=== PATIENT | female | born 1965 | race Caucasian/White ===

== ENCOUNTER → 2017-01-22 | Day surgery (SDC) | payer OTHER ==
[~2017-01-22] MED LIST: ALPR.25 PO; ARIM1TAB OR; BUPIVACAINE/EPINEPHRINE 0.5% 50 ML VIAL ONE; CALCCHW25 PO; CEPH500C3 PO; HEPARIN SODIUM - IV 10,000 UNITS/10 ML VIAL ONE; LACTATED RINGER'S 1000 ML INJ 1,000 ML ONE; LEVO.2 PO; MIDAZOLAM HCL 2 MG/2 ML VIAL ONE; ONDANSETRON HCL 4 MG/2 ML VIAL IV PUSH ONE; PROPOFOL 500 MG/50 ML BTL IV ONE; SODIUM CHLORIDE 0.9% 20 ML VIAL ONE; SYNT200T OR; TAB-TAB PO; ceFAZolin 2 GM PREMIX 50 ML ONE
--- NOTE | 2017-01-22 10:13 | TN ---
cc: CRESCENCIO ABDI M.D. DATE OF SURGERY: 01/22/2017 PREOPERATIVE DIAGNOSIS Recurrent metastatic breast cancer. POSTOPERATIVE DIAGNOSIS Recurrent metastatic breast cancer. PROCEDURE PERFORMED Right subclavian [id number] with intraoperative fluoroscopy. SURGEON Crescencio Abdi MD ANESTHESIA General. COMPLICATIONS None. INDICATION FOR PROCEDURE Ms. Sarabia is a very pleasant 51-year-old female who unfortunately has recurrent metastatic breast cancer. She requires additional chemotherapy. Port placement was requested. Risks and benefits of port placement was discussed with her and her and they were agreeable. DETAILS OF PROCEDURE The patient was identified, brought to the operating room and placed supine on the operating table. After adequate IV sedation was achieved the anterior chest and neck was prepped and draped in standard surgical fashion. 0.25% Marcaine was injected in the skin and subcutaneous tissue around her previous port site in the right subclavian area. The right subclavian vein was then accessed without difficulty using 18 gauge needle. Guidewire was advanced and followed to the level of superior vena cava. Next the previous port incision was opened and subcutaneous pocket was fashioned in the right anterior chest. The introducer was then placed over the guidewire and followed with direct fluoroscopy into the superior vena cava. Guidewire was then removed and the catheter was inserted. Catheter was advanced about 18 cm which placed it in the superior vena cava adjacent to the right atrium. Next the catheter was brought down to the port pocket. The catheter was attached to the port with the locking device. Port was then tested and found to have excellent blood return, easy ability to flush. The port was placed into the pocket and secured with 2-0 Prolene suture. Pocket was then filled with local anesthetic and closed in two layers using a 4-0 Vicryl. Sterile dressings were applied and the patient was awakened, brought to recovery in stable condition. MD CAMI Gomez/LYN /9:49 AM /10:04 AM
== END | disposition home or self-care (01) ==
LOC: ESDC 07:51
PROVIDERS: ATTEND Surgery Trauma Surgery
DX: C79.81 Secondary malignant neoplasm of breast (principal); C80.1 Malignant (primary) neoplasm, unspecified
CPT/HCPCS: 00532; 36561; 76000; C1788; J0690; J1644; J2250; J2405; J3010; J7120

== ENCOUNTER 2017-03-12 10:18 | Day surgery (SDC) | payer OTHER ==
[~2017-03-12 10:18] MED LIST changes: -BUPIVACAINE/EPINEPHRINE 0.5% 50 ML VIAL ONE; -HEPARIN SODIUM - IV 10,000 UNITS/10 ML VIAL ONE; -LACTATED RINGER'S 1000 ML INJ 1,000 ML ONE; -LEVO.2 PO; -MIDAZOLAM HCL 2 MG/2 ML VIAL ONE; -ONDANSETRON HCL 4 MG/2 ML VIAL IV PUSH ONE; -PROPOFOL 500 MG/50 ML BTL IV ONE; -SODIUM CHLORIDE 0.9% 20 ML VIAL ONE; -ceFAZolin 2 GM PREMIX 50 ML ONE
[2017-03-12 10:59] VITALS: BP 104/63; PULSE 120; RESP 16; TEMP 98; O2SAT 97
[2017-03-12 12:00] VITALS: BP 100/57; PULSE 114; RESP 18; TEMP 98.2; O2SAT 98
[2017-03-12 12:15] VITALS: BP 98/58; PULSE 116; RESP 18; O2SAT 98
--- NOTE | 2017-03-12 17:02 | RADRPT ---
EXAM DATE/TIME: 03/12/2017 10:44 [facility] COMPARISON: No previous studies available for comparison. INDICATIONS : Ascites. MEDICAL HISTORY : Hypothyroidism. Left breast caner. Liver cancer. Thyroid cancer. SURGICAL HISTORY : Hysterectomy. Cholecystectomy. Thyroid removal. Left mastecotomy. ENCOUNTER: Initial ACUITY: 1 day PAIN SCORE: 10 LOCATION: Left lower quadrant FLUID: Total volume of 4600 cc of clear, yellow fluid was removed. Fluid was sent to lab for ordered studies. Post procedure scanning reveals no hematoma or other complication. TECHNIQUE: 1. Ultrasound guidance for abdominal paracentesis. 2. Paracentesis. The risks, benefits, and alternatives to ultrasound guided paracentesis were explained to the patient in detail including the risk of bleeding and infection. Written and verbal informed consent was obt ained. With the patient on the ultrasound table, ultrasound imaging was used to select the most appropriate approach for paracentesis. Overlying skin was prepped and draped in the usual sterile fashion and wi th a local anesthetic, a dermatotomy was made with an 11 blade scalpel. A 6 Peruvian Hhj-Y-ngdkzaig ca theter was introduced into the peritoneal cavity and fluid was collected. The patient tolerated the procedure well and left the ultrasound suite in stable condition. CONCLUSION: Uncomplicated ultrasound guided paracentesis. Chapito Jacinto MD on March 12, 2017 at 17:01 Board Certified Radiologist. This report was verified electronically.
== END 2017-03-12 12:30 | disposition home or self-care (01) ==
LOC: HRAD 10:18 → HRIP 10:18 → HRAD 12:30
PROVIDERS: ATTEND Internal Medicine Hematology & Oncology
DX: R18.8 Other ascites (principal); E03.9 Hypothyroidism, unspecified; Z85.3 Personal history of malignant neoplasm of breast; Z85.850 Personal history of malignant neoplasm of thyroid; Z85.05 Personal history of malignant neoplasm of liver; Z90.12 Acquired absence of left breast and nipple
CPT/HCPCS: 49083; C1729

== ENCOUNTER 2017-03-19 10:34 | Day surgery (SDC) | payer OTHER ==
[2017-03-19 11:22] VITALS: BP 94/59; PULSE 109; RESP 16; TEMP 97.7; O2SAT 95
[2017-03-19 12:20] VITALS: BP 86/50; PULSE 100; RESP 18; TEMP 97.8; O2SAT 100
[2017-03-19 12:35] VITALS: BP 92/51; PULSE 102; RESP 18; O2SAT 98
[2017-03-19 12:55] VITALS: BP 90/55; PULSE 102; RESP 18; TEMP 97.4; O2SAT 98
--- NOTE | 2017-03-19 13:28 | RADRPT ---
EXAM DATE/TIME: 03/19/2017 11:02 [facility] COMPARISON: US GUIDED ABD PARACENTESIS, March 12, 2017, 10:44. INDICATIONS : Ascites. MEDICAL HISTORY : Hypothyroidism. Left breast caner. Liver cancer. Thyroid cancer. SURGICAL HISTORY : Hysterectomy. Cholecystectomy. Thyroid removal. Left mastecotomy. ENCOUNTER: Initial ACUITY: 1 day PAIN SCORE: 0/10 LOCATION: Left lower quadrant FLUID: Total volume of 3900 cc of clear, yellow fluid was removed. Fluid was discarded. Paracentesis was therapeutic only. Post procedure scanning reveals no hematoma or other complication. TECHNIQUE: 1. Ultrasound guidance for abdominal paracentesis. 2. Paracentesis. The risks, benefits, and alternatives to ultrasound guided paracentesis were explained to the patient in detail including the risk of bleeding and infection. Written and verbal informed consent was obt ained. With the patient on the ultrasound table, ultrasound imaging was used to select the most appropriate approach for paracentesis. Overlying skin was prepped and draped in the usual sterile fashion and wi th a local anesthetic, a dermatotomy was made with an 11 blade scalpel. A 6 Serbian Ymh-H-xlhbtafx ca theter was introduced into the peritoneal cavity and fluid was collected. The patient tolerated the procedure well and left the ultrasound suite in stable condition. CONCLUSION: Uncomplicated ultrasound guided paracentesis. Chandler Romo MD FACR on March 19, 2017 at 13:22 Board Certified Radiologist. This report was verified electronically.
== END 2017-03-19 12:55 | disposition home or self-care (01) ==
LOC: HRAD 10:34 → HRIP 10:34 → HRAD 12:55
PROVIDERS: ATTEND Internal Medicine Hematology & Oncology
DX: R18.8 Other ascites (principal); E03.9 Hypothyroidism, unspecified; Z85.3 Personal history of malignant neoplasm of breast; Z85.850 Personal history of malignant neoplasm of thyroid; Z85.05 Personal history of malignant neoplasm of liver; Z90.12 Acquired absence of left breast and nipple
CPT/HCPCS: 49083; C1729

== ENCOUNTER 2017-03-21 01:23 | Inpatient (IN) | payer OTHER ==
[~2017-03-21] VITALS: Ht 162.6 cm; Wt 91.0 kg
[2017-03-21] VITALS (8 sets, daily range): BP systolic 96–124; BP diastolic 48–72; PULSE 111–118; RESP 12–20; TEMP 96–98.3; O2SAT 96–100
[2017-03-21] MEDS ORDERED: LEVO.2 PO (01:55)
[2017-03-21] MEDS ORDERED: ONDANSETRON HCL 4 MG/2 ML VIAL ONE (02:07)
[2017-03-21] MEDS ORDERED: SODIUM CHLOR 0.9% 1000 ML INJ 1,000 ML IV SCH (02:37)
[2017-03-21] MEDS ORDERED: SODIUM CHLORIDE 0.9% FLUSH 10 ML FLUSH IV FLUSH PRN ×2 (02:45→05:00)
[2017-03-21] MEDS ORDERED: ONDANSETRON HCL 4 MG/2 ML VIAL IVP ONE (02:45)
[2017-03-21] MEDS ORDERED: MORPHINE SULFATE 4 MG/ML INJ IV PUSH ONE (02:45)
[2017-03-21 03:09] LABS: HEMATOCRIT 32.2 % (35.0-46.0); MEAN CELL VOLUME 93.2 FL (80.0-100.0); MEAN CORPUSCULAR HGB CONC 33.2 % (32.0-36.0); PLATELET COUNT 83 TH/MM3 (150-450); RED BLOOD COUNT 3.46 MIL/MM3 (4.00-5.30); RED CELL DISTRIBUTION WIDTH 24.5 % (11.6-17.2); WHITE BLOOD COUNT 0.6 TH/MM3 (4.0-11.0)
[2017-03-21 03:11] LABS: HEMO FLAGS AUTO DIFF
[2017-03-21 03:15] LABS: ALT (GPT) 59 U/L (10-53); ANION GAP 14 MEQ/L (5-15); AST (GOT) 288 U/L (15-37); BICARBONATE 16.3 MEQ/L (21.0-32.0); BLOOD UREA NITROGEN 42 MG/DL (7-18); CHLORIDE 101 MEQ/L (98-107); GLOMERULAR FILTRATION RATE 58 ML/MIN (>89); POTASSIUM 3.9 MEQ/L (3.5-5.1); SODIUM (NA) 131 MEQ/L (136-145)
[2017-03-21 03:16] LABS: APTT (PATIENT) 49.1 SEC (24.3-30.1); INTERNATIONAL NORMALIZED RATIO 1.6 RATIO; PROTHROMBIN TIME - PATIENT 17.6 SEC (9.8-11.6)
[2017-03-21 03:17] LABS: ALKALINE PHOSPHATASE 449 U/L (45-117); TOTAL BILIRUBIN ADULT 12.1 MG/DL (0.2-1.0)
[2017-03-21 03:31] LABS: BANDS 12 % (0-6); BASOPHILS 8 % (0-2); CORRECTED NUCLEATED RBC 16 /100 WBC (0-0); NEUTROPHIL # MANUAL DIFF 0.2 TH/MM3 (1.8-7.7); POLYS (SEG NEUTROPHILS) 16 % (16-70); PROMYELOCYTES 4 % (0-0); WBC DIFF SAMPLE 25
[2017-03-21 03:33] LABS: PLATELET ESTIMATE SMEAR LOW (NORMAL); PLATELET MORPHOLOGY NORMAL (NORMAL); SCAN/DIFF FINAL DIFF MANUAL
--- NOTE | 2017-03-21 04:10 | PD ---
HPI . Abdominal pain Chief Complaint: Abdominal Pain Time Seen by Provider: 02:37 Travel History International Travel<30 days: No Contact w/Intl Traveler<30days: No Traveled to known affect area: No History of Present Illness HPI Patient presents with lower abdominal pain. She reports the onset at about 10 or 11 PM tonight. She describes it as cramping. It has been unrelieved by oxycodone. She has had 2 episodes of emesis but states that there wasn't very much volume. Pain is rated as 10/10. reports that she has not been eating or drinking for the last several days. She has been having intermittent emesis. This patient has a history of breast cancer with metastases to the liver. Her last chemotherapy was less than a week ago. She is having rapidly progressive worsening of her liver function studies and ascites. PFSH Past Medical History Cancer: Yes (BREAST AND THYROID) Cardiovascular Problems: No Diabetes: No Diminished Hearing: No Endocrine: Yes Genitourinary: No Hepatitis: No Hiatal Hernia: No Immune Disorder: No Neurologic: No Psychiatric: No Respiratory: No Thyroid Disease: Yes (CANCER) Tetanus Vaccination: Unknown Influenza Vaccination: No ?: Not Past Surgical History Abdominal Surgery: No AICD: No Body Medical Devices: BREAST IMPLANTS Cardiac Surgery: No Ear Surgery: No Endocrine Surgery: Yes (THYROIDECTOMY) Eye Surgery: No Genitourinary Surgery: No Gynecologic Surgery: Yes () Joint Replacement: No Oral Surgery: No Pacemaker: No Thoracic Surgery: Yes ( INFUSA PORT AND REMOVAL, BILAT BREAST MASTECTOMY AND RECONSTRUCTION ) Other Surgery: Yes Social History Alcohol Use: No Tobacco Use: No Substance Use: No Allergies-Medications (Allergen,Severity, Reaction): Coded Allergies: Adhesives (Verified Allergy, Severe, WELKONRAD, 03/01/14) NO TAPE OR STERI STRIPS USE PAPER TAPE Reported Meds & Prescriptions Reported Meds & Active Scripts Active Reported Synthroid (Levothyroxine Sodium) 200 Mcg Tab 200 Mcg PO DAILY Review of Systems Except as stated in HPI: all other systems reviewed are Neg General / Constitutional: No: Fever, Chills Gastrointestinal: Positive: Nausea, Vomiting, Abdominal Pain, Loss of Appetite Physical Exam Narrative GENERAL: This is a chronically ill-appearing woman. SKIN: Warm and dry. Jaundiced. HEAD: Atraumatic. Normocephalic. EYES: Pupils equal and round. Sclera are icteric. ENT: No nasal bleeding or discharge. Mucous membranes pink and moist. NECK: Trachea midline. Neck is supple. CARDIOVASCULAR: Regular rhythm, tachycardic rate. RESPIRATORY: No accessory muscle use. Lungs are clear. GASTROINTESTINAL: Ascites. Liver edge is palpable to about the umbilicus. The abdomen is diffusely tender. MUSCULOSKELETAL: No obvious deformities. No edema. NEUROLOGICAL: Drowsy but easily arousable. No obvious cranial nerve deficits. Motor grossly within normal limits. Normal speech. PSYCHIATRIC: Appropriate mood and affect; insight and judgment normal. Data Data Last Documented VS Vital Signs Date Time Temp Pulse Resp B/P Pulse Ox O2 Delivery O2 Flow Rate FiO2 03/21/17 02:01 118 20 99/52 100 Room Air 03/21/17 01:27 97.5 Orders Ondansetron Inj (Zofran Inj) (03/21/17 02:07) Complete Blood Count With Diff (03/21/17 02:37) Comprehensive Metabolic Panel (03/21/17 02:37) Prothrombin Time / Inr (Pt) (03/21/17 02:37) Act Partial Throm Time (Ptt) (03/21/17 02:37) Urinalysis - C+S If Indicated (03/21/17 02:37) Iv Access Insert/Monitor (03/21/17 02:37) Morphine Inj (Morphine Inj) (03/21/17 02:45) Ondansetron Inj (Zofran Inj) (03/21/17 02:45) Sodium Chlor 0.9% 1000 Ml Inj (Ns 1000 M (03/21/17 02:37) Sodium Chloride 0.9% Flush (Ns Flush) (03/21/17 02:45) Ammonia (03/21/17 02:37) Sodium Chlor 0.9% 1000 Ml Inj (Ns 1000 M (03/21/17 04:30) Morphine Inj (Morphine Inj) (03/21/17 04:30) Admit Order (Ed Use Only) (03/21/17 04:45) Labs Laboratory Tests Test 03/21/17 02:42 White Blood Count 0.6 TH/MM3 Red Blood Count 3.46 MIL/MM3 Hemoglobin 10.7 GM/DL Hematocrit 32.2 % Mean Corpuscular Volume 93.2 FL Mean Corpuscular Hemoglobin 31.0 PG Mean Corpuscular Hemoglobin 33.2 % Concent Red Cell Distribution Width 24.5 % Platelet Count 83 TH/MM3 Mean Platelet Volume 9.4 FL Neutrophils (%) (Auto) % Lymphocytes (%) (Auto) % Monocytes (%) (Auto) % Eosinophils (%) (Auto) % Basophils (%) (Auto) % Neutrophils # (Auto) TH/MM3 Lymphocytes # (Auto) TH/MM3 Monocytes # (Auto) TH/MM3 Eosinophils # (Auto) TH/MM3 Basophils # (Auto) TH/MM3 CBC Comment AUTO DIFF Differential Total Cells 25 Counted Neutrophils % (Manual) 16 % Band Neutrophils % 12 % Lymphocytes % 44 % Monocytes % 16 % Basophils % 8 % Neutrophils # (Manual) 0.2 TH/MM3 Promyelocytes 4 % Nucleated Red Blood Cells 16 /100 WBC Differential Comment FINAL DIFF MANUAL Platelet Estimate LOW Platelet Morphology Comment NORMAL Prothrombin Time 17.6 SEC Prothromb Time International 1.6 RATIO Ratio Activated Partial 49.1 SEC Thromboplast Time Sodium Level 131 MEQ/L Potassium Level 3.9 MEQ/L Chloride Level 101 MEQ/L Carbon Dioxide Level 16.3 MEQ/L Anion Gap 14 MEQ/L Blood Urea Nitrogen 42 MG/DL Creatinine 1.00 MG/DL Estimat Glomerular Filtration 58 ML/MIN Rate Random Glucose 113 MG/DL Calcium Level 7.6 MG/DL Total Bilirubin 12.1 MG/DL Aspartate Amino Transf 288 U/L (AST/SGOT) Alanine Aminotransferase 59 U/L (ALT/SGPT) Alkaline Phosphatase 449 U/L Ammonia 25 MCMOL/L Total Protein 6.2 GM/DL Albumin 1.9 GM/DL [facility] Medical Decision Making Medical Screen Exam Complete: Yes Emergency Medical Condition: Yes Medical Record Reviewed: Yes (patient was most recently seen by Dr. Pierce on 03/10.) Differential Diagnosis Differential diagnosis of abdominal pain includes but is not limited to gastritis, pancreatitis, hepatitis, gastroenteritis, gallbladder disease, constipation, urinary retention, UTI, peptic ulcer disease, diverticulitis or appendicitis Narrative Course This is a patient with breast cancer with metastases to the liver who comes in with abdominal pain and worsening ascites. CBC & BMP Diagram 03/21/17 02:42 Her total white blood count and ANC have decreased since 03/18. Total bili 12.1, AST 288, ALT 59, alkaline phosphatase 449, ammonia level 25. This is a cancer patient who comes in with intractable pain associated with worsening ascites and hyperbilirubinemia. She also has neutropenia with an ANC of 200. Vital Signs Date Time Temp Pulse Resp B/P Pulse Ox O2 Delivery O2 Flow Rate FiO2 03/21/17 02:01 118 20 99/52 100 Room Air 03/21/17 01:27 97.5 118 20 96/54 99 Room Air The patient is still tachycardic following a liter fluid. She will be given a second liter. Diagnosis Primary Impression: Abdominal pain Qualified Code: R10.84 - Generalized abdominal pain Additional Impressions: Ascites Qualified Code: R18.0 - Malignant ascites Neutropenia Qualified Code: D70.1 - Chemotherapy-induced neutropenia Dehydration Admitting Information Admitting Physician Requests: Admit Condition: Stable Citlalli Rose MD Mar 21, 2017 04:09
[2017-03-21] MEDS ORDERED: MORPHINE SULFATE 4 MG/ML INJ IV PUSH PRN ×2 (04:30→10:00)
[2017-03-21] MEDS ORDERED: SODIUM CHLOR 0.9% 1000 ML INJ 1,000 ML IV ONE (04:30)
[2017-03-21] MEDS ORDERED: HYDROmorphone HCL PF 1 MG/ML VIAL IV PUSH PRN (05:00)
[2017-03-21] MEDS ORDERED: NALOXONE HCL 0.4 MG/ML AMP IV PRN (05:00)
[2017-03-21] MEDS: SODIUM CHLOR 0.9% 1000 ML INJ 1,000 ML IV SCH ×2 (05:21→14:59)
[2017-03-21] MEDS: LEVOTHYROXINE SODIUM 200 MCG TAB PO SCH (08:37)
[2017-03-21] MEDS: SODIUM CHLORIDE 0.9% FLUSH 10 ML FLUSH IV FLUSH SCH ×2 (09:00→22:27)
[2017-03-21] MEDS ORDERED: ACETAMINOPHEN/HYDROcodone 325 MG/10 MG TAB PO PRN (09:45)
[2017-03-21] MEDS ORDERED: DOCUSATE SODIUM 50 MG/SENNA 8.6 MG TAB PO PRN (09:45)
[2017-03-21] MEDS ORDERED: ACETAMINOPHEN/HYDROcodone 325 MG/7.5 MG TAB PO PRN (09:45)
[2017-03-21] MEDS ORDERED: MAGNESIUM HYDROXIDE SUSP 30 ML CUP PO PRN (09:45)
--- NOTE | 2017-03-21 10:01 | HHI.HP ---
[facility] Rachel Recinos MD Admission Diagnosis dehydration, pancytopenia, ascites, abd pain Diagnoses: Travel History International Travel<30 Days: No Contact w/Intl Traveler <30 Da: No Traveled to Known Affected Are: No History of Present Illness 51-year-old female with past medical history of hypothyroidism, metastatic breast cancer to the liver presented to the emergency room with excruciating lower mid abdominal pain. Pt's gives most of the history and states that since starting the new chemotherapy, pt hasn't been eating. Pt tells me that she has lost 20 lbs in 1 month. Pt has had 2 paracentesis in 2 weeks. Pt vomiting twice yesterday. feels nauseous at this time. currently pt states that she just has soreness in her abdomen, feels very tired, not hungry. denies any diarrhea, admits to lightheadedness but denies any CP/SOB/fevers or chills. Pt states that she had a very small BM yesterday.complains of pruritis Pt's is hopeful that Dr. Pierce and Dr. Recinos will come see the pt in the hospital. Review of Systems Except as stated in HPI: all other systems reviewed are Neg Past Family Social History Past Medical History hypothyroidism metastatic breast cancer to the liver Past Surgical History bilateral mastectomies cholecystectomy thyroidectomy Allergies: Coded Allergies: Adhesives (Verified Allergy, Severe, WELTS, 03/01/14) NO TAPE OR STERI STRIPS USE PAPER TAPE Family History mother from esophageal cancer father: prostate cancer and atria fib Social History denies any smoking hx, alcohol intake or illegal drug use Physical Exam Vital Signs Vital Signs Date Time Temp Pulse Resp B/P Pulse Ox O2 Delivery O2 Flow Rate FiO2 03/21/17 07:14 98.3 113 16 124/48 96 03/21/17 05:08 113 16 98/52 97 Room Air 03/21/17 02:01 118 20 99/52 100 Room Air 03/21/17 01:27 97.5 118 20 96/54 99 Room Air Physical Exam GENERAL: pt looks very tired SKIN: jaundiced. No obvious rashes Cool and dry. HEAD: Atraumatic. Normocephalic. No temporal or scalp tenderness. EYES: Extraocular motions intact. +scleral icterus. No injection or drainage. ENT: Nose without drainage. Airway patent. NECK: Trachea midline. No JVD or lymphadenopathy. Supple, nontender, no meningeal signs. CARDIOVASCULAR: tachycardic without murmurs RESPIRATORY: Clear to auscultation. Breath sounds equal bilaterally. No wheezes , rales, or rhonchi. GASTROINTESTINAL: Abdomen soft, discomfort w deep palpation, ?ascites, distended. difficult to assess for hepato-splenomegaly, or palpable masses. No guarding. MUSCULOSKELETAL: Extremities with +1 edema. N No calf tenderness. Negative Homans sign bilaterally. NEUROLOGICAL: Awake and alert. Cranial nerves II through XII intact. Motor and sensory grossly within normal limits but she is weak. Normal speech. Laboratory Laboratory Tests Test 03/21/17 02:42 White Blood Count 0.6 Red Blood Count 3.46 Hemoglobin 10.7 Hematocrit 32.2 Mean Corpuscular Volume 93.2 Mean Corpuscular Hemoglobin 31.0 Mean Corpuscular Hemoglobin 33.2 Concent Red Cell Distribution Width 24.5 Platelet Count 83 Mean Platelet Volume 9.4 Neutrophils (%) (Auto) Lymphocytes (%) (Auto) Monocytes (%) (Auto) Eosinophils (%) (Auto) Basophils (%) (Auto) Neutrophils # (Auto) Lymphocytes # (Auto) Monocytes # (Auto) Eosinophils # (Auto) Basophils # (Auto) CBC Comment AUTO DIFF Differential Total Cells 25 Counted Neutrophils % (Manual) 16 Band Neutrophils % 12 Lymphocytes % 44 Monocytes % 16 Basophils % 8 Neutrophils # (Manual) 0.2 Promyelocytes 4 Nucleated Red Blood Cells 16 Differential Comment FINAL DIFF MANUAL Platelet Estimate LOW Platelet Morphology Comment NORMAL Prothrombin Time 17.6 Prothromb Time International 1.6 Ratio Activated Partial 49.1 Thromboplast Time Sodium Level 131 Potassium Level 3.9 Chloride Level 101 Carbon Dioxide Level 16.3 Anion Gap 14 Blood Urea Nitrogen 42 Creatinine 1.00 Estimat Glomerular Filtration 58 Rate Random Glucose 113 Calcium Level 7.6 Total Bilirubin 12.1 Aspartate Amino Transf 288 (AST/SGOT) Alanine Aminotransferase 59 (ALT/SGPT) Alkaline Phosphatase 449 Ammonia 25 Total Protein 6.2 Albumin 1.9 Result Diagram: 03/21/1724103/21/17241 Assessment and Plan Assessment and Plan metastatic breast cancer to the liver: pt known to Dr. Pierce. I had a long discussion w Dr. Pierce. She will evaluate the patient, Consult placed. At this time, she is agreeable to a GI consult as pt's LFTs have been worsening. Per Dr. Pierce, pt wants aggressive management and is not yet ready to transition to comfort measures. Dr. Pierce will speak w Dr. Recinos as well and notify her that pt is in the hospital. abdominal pain/ascites/liver failure: most likely from metastatic breast cancer. GI consult in place: T. Bili 12. AST 288 and ALT 59. Monitor. check abdominal u/s for ascites and see if she needs paracentesis. pain management w norco and morphine prn. stool softeners in place hypothyroidism: resumed home med poor appetite/dehydration: very poor appetite since starting the new chemo. Will get optical lens manufacturing tech to speak w pt and make recs.Pt is a vegetarian. I have encouraged pt to try to eat, at least attempt to drink some ensure (which she hasn't). give IVFs for now NS @100ml /hr. tachycardia: most likely from dehydration. monitor. DVT proph: lovenox. will transfer to the oncology floor. Code Status full Discussed Condition With Dr. Pierce, patient and Alta Lal MD Mar 21, 2017 10:01
[2017-03-21] MEDS ORDERED: ONDANSETRON HCL 4 MG/2 ML VIAL IV PUSH PRN (11:00)
--- NOTE | 2017-03-21 14:19 | PD.CONS ---
HPI History of Present Illness This is a 51 year old [lady] with hx breast cancer with liver mets and jaundice who presented with c/o suprapubic pain, nausea, vomiting. She has had 2 paracenteses in the last 2 weeks. She has not been eating much lately. Per EMR she has started new chemo therapy 2 x a week and has been feeling sick since. No blood in vomit, no diarrhea. She sees Dr Sykes. (Shell Delgado) PFSH Past Medical History hypothyroidism metastatic breast cancer to the liver Past Surgical History bilateral mastectomies cholecystectomy thyroidectomy (Shell Delgado) Coded Allergies: Adhesives (Verified Allergy, Severe, WELKONRAD, 03/01/14) NO TAPE OR STERI STRIPS USE PAPER TAPE Family History mother from esophageal cancer father: prostate cancer and atria fib Social History denies any smoking hx, alcohol intake or illegal drug use (Shell Delgado ) Review of Systems Constitutional: COMPLAINS OF: Fatigue, Change in appetite Eyes: DENIES: Blurred vision Ears, nose, mouth, throat: DENIES: Hearing loss Respiratory: DENIES: Wheezing Cardiovascular: DENIES: Chest pain Gastrointestinal: COMPLAINS OF: Abdominal pain, Nausea, Vomiting, Swelling of Abdomen, DENIES: Black stools, Bloody stools, Constipation, Diarrhea, Difficulty Swallowing, Hematemesis Genitourinary: DENIES: Hematuria Musculoskeletal: DENIES: Joint Swelling Integumentary: COMPLAINS OF: Jaundice Hematologic/lymphatic: DENIES: Bruising Neurologic: DENIES: Abnormal gait Psychiatric: DENIES: Confusion (Shell Delgado) GI Exam Vitals I&O Vital Signs Date Time Temp Pulse Resp B/P Pulse Ox O2 Delivery O2 Flow Rate FiO2 03/21/17 11:15 97.5 111 18 124/55 97 03/21/17 07:14 98.3 113 16 124/48 96 03/21/17 05:08 113 16 98/52 97 Room Air 03/21/17 02:01 118 20 99/52 100 Room Air 03/21/17 01:27 97.5 118 20 96/54 99 Room Air Laboratory Test 03/21/17 02:42 White Blood Count 0.6 TH/MM3 Red Blood Count 3.46 MIL/MM3 Hemoglobin 10.7 GM/DL Hematocrit 32.2 % Mean Corpuscular Volume 93.2 FL Mean Corpuscular Hemoglobin 31.0 PG Mean Corpuscular Hemoglobin 33.2 % Concent Red Cell Distribution Width 24.5 % Platelet Count 83 TH/MM3 Mean Platelet Volume 9.4 FL Neutrophils (%) (Auto) % Lymphocytes (%) (Auto) % Monocytes (%) (Auto) % Eosinophils (%) (Auto) % Basophils (%) (Auto) % Neutrophils # (Auto) TH/MM3 Lymphocytes # (Auto) TH/MM3 Monocytes # (Auto) TH/MM3 Eosinophils # (Auto) TH/MM3 Basophils # (Auto) TH/MM3 CBC Comment AUTO DIFF Differential Total Cells 25 Counted Neutrophils % (Manual) 16 % Band Neutrophils % 12 % Lymphocytes % 44 % Monocytes % 16 % Basophils % 8 % Neutrophils # (Manual) 0.2 TH/MM3 Promyelocytes 4 % Nucleated Red Blood Cells 16 /100 WBC Differential Comment FINAL DIFF MANUAL Platelet Estimate LOW Platelet Morphology Comment NORMAL Prothrombin Time 17.6 SEC Prothromb Time International 1.6 RATIO Ratio Activated Partial 49.1 SEC Thromboplast Time Sodium Level 131 MEQ/L Potassium Level 3.9 MEQ/L Chloride Level 101 MEQ/L Carbon Dioxide Level 16.3 MEQ/L Anion Gap 14 MEQ/L Blood Urea Nitrogen 42 MG/DL Creatinine 1.00 MG/DL Estimat Glomerular Filtration 58 ML/MIN Rate Random Glucose 113 MG/DL Calcium Level 7.6 MG/DL Total Bilirubin 12.1 MG/DL Aspartate Amino Transf 288 U/L (AST/SGOT) Alanine Aminotransferase 59 U/L (ALT/SGPT) Alkaline Phosphatase 449 U/L Ammonia 25 MCMOL/L Total Protein 6.2 GM/DL Albumin 1.9 GM/DL Physical Examination HEENT: EOMI; normocephalic; atraumatic; +icterus. CHEST: CTA CARDIAC: tachy ABDOMEN: Soft, distended, nontender; bowel sounds faint EXTREMITIES: No clubbing, cyanosis, 1+ pitting BLE edema. SKIN: Normal; no rash; + jaundice. ASSEMBLER GARMENT FORM: lethargic; oriented times three. (Shell Delgado) Assessment and Plan Plan ASSESSMENT - elevated LFTs, jaundice, ascites - pt has hx BrCa with liver mets. 2 paracenteses in last 2 weeks. US pending. - nausea/vomiting - unclear etiology, ?new chemo. oncology consulted - suprapubic pain - unclear etiology. Will do CT - liver mets - oncology consulted. PLAN - await CT abd/pelvis, US liver - clears for now, when ready to advance low sodium diet - diuretics - consider paracentesis if abd becomes tense - supportive care - further recommendations to follow results above This pt seen by myself and Dr Dover and this note is written on his behalf ( Shell Delgado) Physician Comments Seen and examined, discussed with . Less abdominal pain after Foly's . Will need imaging study (CT) to role biliary tree dominant stricture/ compression . Will follow up with you. (Kaley Dover MD) Shell Delgado Mar 21, 2017 14:19 Kaley Dover MD Mar 21, 2017 15:03
[2017-03-21 14:38] LABS: BACTERIA, URINE MOD /hpf; BLOOD, URINE SMALL (NEG); COMMENT (UR) CULTURE INDICATED; CULTURE IF INDICATED CULTURE INDICATED; GLUCOSE,URINE TRACE mg/dL (NEG); HYALINE CAST, URINE 35 /lpf (RARE); KETONE, URINE NEG (NEG); MUCUS URINE FEW /lpf (OCC); NITRITE,URINE NEG (NEG); PH, URINE 5.5 (5.0-8.5); SQUAMOUS EPITHELIAL CELL URINE 6 /hpf (0-5)
[2017-03-21 14:40] LABS: URINE COLOR DARK-BROWN (YELLW/STRAW)
[2017-03-21] MEDS: SPIRONOLACTONE 50 MG TAB PO SCH (14:58)
[2017-03-21] MEDS: FILGRASTIM 300 MCG/ML VIAL SQ SCH (17:51)
--- NOTE | 2017-03-21 20:25 | MB ---
cc: ALTA LAL MD, RUBY ANNE E. M.D. DATE OF CONSULTATION: 03/21/2017 DATE OF : [address] Alta Lal CHIEF COMPLAINT Dr. Lal requested a consultation for Mrs. Sarabia regarding metastatic breast cancer. HISTORY OF PRESENT ILLNESS Mrs. Sarabia is a well-known 51-year-old woman with a history of metastatic breast cancer in 2011. She has recently progressed on cisplatin, after two cycles she has developed progressive liver metastatic disease. She has developed symptoms of fulminant hepatic failure. She has ascites, she has abdominal pain, enlarged liver, hypobilirubinemia, increased liver function. She was started on palliative therapy and Halaven. She received her second dose this week. On 03/18/2017 her white blood cell count was 5.5, hemoglobin 9.8, platelet count 96,000. On day 8 of Halaven her bilirubin went up from 7.1 to 9.7. Her second dose was administered. Mrs. Sarabia presents with low abdominal pain. She woke up in the middle of the night screaming. She has had increasing symptoms and inability to eat, lack of appetite. She suspected she had a urinary tract infection. Her urinalysis on admission shows a moderate amount of bacteria. She was started on antibiotic therapy. She was found to be neutropenic and neutropenic precaution initiated. Her hemoglobin is stable, her platelet count has decreased slightly. Her ANC is 200 but her temperature is normal, she is tachycardic. She also complains of some sore throat, ear pain. She is uncomfortable from the liver. She has a decrease in performance, her legs are swollen. She still wants to continue aggressive treatment for her metastatic breast cancer. She and her family are eager to determine if there is any response or hope for a response with the Halaven. During the consultation, she was evaluated by Dr. Kaley Dover. Imaging study of the abdomen and pelvis and ultrasound of the liver is being performed to evaluate a stentable source for the hyperbilirubinemia. Her ammonia level is normal. She is reluctant to take pain medicine. She has constipation. The rest of her review of systems is negative. PAST MEDICAL HISTORY 1. Hypothyroidism. 2. Prior history of thyroid cancer. 3. Metastatic breast cancer. 4. Hepatic failure. 5. Hyperbilirubinemia. 6. Ascites. 7. Anemia. PAST SURGICAL HISTORY 1. Plastic surgery. 2. Mastectomy bilateral with reconstruction. 3. Thyroidectomy. 4. Metastasectomy. 5. Bilateral salpingo-oophorectomy. 6. Cholecystectomy. 7. Neck lymph node biopsy. ALLERGIES NO KNOWN DRUG ALLERGIES. FAMILY HISTORY Mother had esophageal cancer, is . Father has prostate cancer and atrial fibrillation. SOCIAL HISTORY She denies any tobacco, alcohol or illicit drug use. PHYSICAL EXAMINATION VITAL SIGNS: Temperature 96.3, heart rate 113, respiratory rate 16, blood pressure 97/54, saturation 100%. GENERAL: Mrs. Sarabia is an overtly jaundiced, ill-appearing, tired-appearing woman. She is sitting in a recliner. HEAD, EYES, EARS, NOSE AND THROAT: Her pupils are round and reactive. Sclerae are icteric. Oropharynx is dry. Tympanic membranes intact without any erythema. Oropharynx without erythema. LUNGS: Clear. CARDIOVASCULAR: Reveals a tachycardia. ABDOMEN: Distended. EXTREMITIES: Lower extremities with bilateral edema. Good pulses. NEUROLOGIC: Nonfocal. LABORATORY DATA Labs significant for hyponatremia. BUN of 42, creatinine 1.0, total bilirubin of 12.1. AST, ALT, alkaline phosphatase elevated. Albumin is decreased. She has pancytopenia. ASSESSMENT AND PLAN Mrs. Sarabia is a 51-year-old woman with metastatic breast cancer. She has progressed on multiple lines of therapy. Recently she has progressed on cisplatin. She has signs of liver failure. She has significant metastatic disease in the liver from her last scan. She has had first cycle of Halaven. Her course is complicated by neutropenia, afebrile, however she has a urinary tract infection which is being treated. I had a lengthy discussion with the patient and her family present at the consultation the difficulty in interpreting her labs are present. It is not clear that she is responding to the chemotherapy. She has just completed her treatment. Cytopenias are related to toxicity from the chemotherapy. It is difficult to interpret the decrease in the AST and ALT is a response, her bilirubin is increasing. This may reduce further pending on the recovery of the liver. GI consultation and input is appreciated. In the meantime, supportive therapy is initiated. The family is worried about her nutrition. I have asked that they defer any parenteral nutrition until her white count recovers. We will have a problem with fluid and ascites and when neutropenic this would be a significant risk for her. I will change her IV fluid to D5 NS. Her pain medication will be scheduled with her option to refuse. Neupogen has been initiated. No transfusion is needed, her platelet count will be monitored. Family has asked for physical therapy, we may consider a physical therapy consultation for range of motion exercises as her performance status is quite poor. She is quite uncomfortable with liver metastatic disease, antiemetic therapy will be placed as well and offered regularly. She complains of itching related to her hypobilirubinemia, she may benefit from some cholestyramine. MD HECTOR Brice/BJF /7:22 PM /7:34 PM
[2017-03-21] MEDS ORDERED: PHYTONADIONE 10 MG/ML VIAL SQ ONE (20:30)
--- NOTE | 2017-03-21 21:48 | RADRPT ---
EXAM DATE/TIME: 03/21/2017 17:52 [facility] COMPARISON: No previous studies available for comparison. [facility], US LIVER, March 11, 2017[facility], CT ABDOMEN AND PELVIS W/O CONTRAST, March 06, 2017. INDICATIONS : Abnormal labs. Abdominal pain. MEDICAL HISTORY : Thyroid cancer. Breast cancer. Liver cancer. Vomiting. Abdominal pain. SURGICAL HISTORY : section. Thyroidectomy. Bilateral mastectomy. Breast reconsruction. ENCOUNTER: Initial ACUITY: 1 day PAIN SCORE: 8/10 LOCATION: Abdomen. MEASUREMENTS: LIVER: 18.5 cm length COMMON DUCT: 5 mm RIGHT KIDNEY: 9.9 x 5.1 x 4.6 cm SPLEEN: 14.5 cm length FINDINGS: LIVER: The liver is diffusely heterogeneous with a lobulated contour. No mass or ductal dilatation. Hepatope saranya flow within the portal vein. Small volume ascites. COMMON DUCT: No intraluminal mass or stone visualized. GALLBLADDER: The gallbladder is nonvisualized. PANCREAS: The visualized portions are within normal limits. RIGHT KIDNEY: No hydronephrosis, stone or mass. SPLEEN: Enlarged spleen. No discrete lesion. CONCLUSION: 1. Cirrhosis. 2. Small volume ascites. Jean-Paul Cross Jr., MD on March 21, 2017 at 21:34 Board Certified Radiologist. This report was verified electronically.
[2017-03-21] MEDS: MORPHINE SULFATE 4 MG/ML INJ IV PUSH SCH (21:50)
[2017-03-21] MEDS: DEXT 5%-NACL 0.9% 1000 ML INJ 1,000 ML IV SCH (22:30)
[2017-03-21] MEDS ORDERED: hydrOXYzine HCL 10 MG TAB PO PRN (22:30)
[2017-03-22] VITALS (16 sets, daily range): BP systolic 82–129; BP diastolic 43–80; PULSE 106–127; RESP 14–46; TEMP 95.6–98.3; O2SAT 95–100
[2017-03-22] MEDS: MORPHINE SULFATE 4 MG/ML INJ IV PUSH SCH ×3 (00:43→05:11)
[2017-03-22] MEDS: LEVOTHYROXINE SODIUM 200 MCG TAB PO SCH (05:11)
[2017-03-22 06:05] LABS: HEMATOCRIT 29.8 % (35.0-46.0); MEAN CELL VOLUME 94.8 FL (80.0-100.0); MEAN CORPUSCULAR HEMOGLOBIN 31.1 PG (27.0-34.0); MEAN CORPUSCULAR HGB CONC 32.8 % (32.0-36.0); PLATELET COUNT 61 TH/MM3 (150-450); RED BLOOD COUNT 3.14 MIL/MM3 (4.00-5.30); RED CELL DISTRIBUTION WIDTH 25.4 % (11.6-17.2); WHITE BLOOD COUNT 0.6 TH/MM3 (4.0-11.0)
[2017-03-22 06:14] LABS: APTT (PATIENT) 53.7 SEC (24.3-30.1); HEMO FLAGS AUTO DIFF; INTERNATIONAL NORMALIZED RATIO 2.1 RATIO
[2017-03-22 06:37] LABS: BICARBONATE 12.9 MEQ/L (21.0-32.0); CALCIUM-PROTEIN CORRECTED 8.1 MG/DL (8.5-10.1); POTASSIUM 4.5 MEQ/L (3.5-5.1)
[2017-03-22] MEDS ORDERED: FUROSEMIDE 20 MG/2 ML VIAL IV PUSH ONE (08:00)
[2017-03-22 08:09] LABS: BANDS 11 % (0-6); BASOPHILS 2 % (0-2); CORRECTED NUCLEATED RBC 4 /100 WBC (0-0); METAMYELOCYTES 1 % (0-1); MYELOCYTES 1 % (0-0); NEUTROPHIL # MANUAL DIFF 0.3 TH/MM3 (1.8-7.7); PLASMA CELLS 1 % (0-0); POLYS (SEG NEUTROPHILS) 40 % (16-70); WBC DIFF SAMPLE 100
[2017-03-22 08:10] LABS: DOHLE BODIES PRESENT (NONE SEEN)
[2017-03-22 08:11] LABS: HOWELL-JOLLY BODIES PRESENT (NONE SEEN)
[2017-03-22 08:15] LABS: ACANTHOCYTES OCC (NORMAL)
[2017-03-22 08:17] LABS: SPHEROCYTES OCC (NORMAL)
[2017-03-22 08:18] LABS: KERATOCYTES OCC (NORMAL); PLATELET ESTIMATE SMEAR LOW (NORMAL); PLATELET MORPHOLOGY NORMAL (NORMAL)
[2017-03-22 08:21] LABS: OVALOCYTES 1+ (NORMAL)
[2017-03-22 08:22] LABS: SCAN/DIFF FINAL DIFF MANUAL; TARGET CELLS 1+ (NORMAL)
[2017-03-22] MEDS: ALBUMIN HUMAN 5% 12.5 GM/250 ML BOTTLE IV SCH ×2 (08:25→20:23)
[2017-03-22] MEDS: SPIRONOLACTONE 50 MG TAB PO SCH (08:44)
--- NOTE | 2017-03-22 08:50 | HHI.PR ---
Subjective Remarks [facility]. She has had some decreased urine output and was on IVF but was third spacing. I came to evaluate the patient, she was found to have a BP of 129/59. She reportedly felt some dizziness. She was started on scheduled morphine last evening, and had been getting it scheduled. Last dose was 3 hrs ago. Patient denies CP or SOB. She was sitting up with legs hanging on side of the bed. She states abdominal pain feels better. She reports feeling tired. [facility] and her albumin dose was started earlier. Blood pressure taken multiple times after and continued to decrease. Objective Vital Signs Date Time Temp Pulse Resp B/P Pulse Ox O2 Delivery O2 Flow Rate FiO2 03/22/17 04:00 96.6 115 20 102/50 95 03/22/17 00:00 96.2 121 22 126/80 98 03/21/17 20:00 115 03/21/17 20:00 96.0 115 20 118/72 98 03/21/17 17:00 96.3 113 12 105/53 96 03/21/17 15:00 96.3 113 16 97/54 100 03/21/17 11:15 97.5 111 18 124/55 97 I/O 03/21/17 03/21/17 03/21/17 03/22/17 03/22/17 03/22/17 07:00 15:00 23:00 07:00 15:00 23:00 Intake Total 480 ml 120 ml Balance 480 ml 120 ml Intake Oral 480 ml 120 ml Bladder Scan Volume Amount 808 ml Result Diagram: 03/22/17 0509 03/22/17 0509 Imaging Last Impressions Liver Ultrasound 03/21/17 0000 Signed Impressions: Service Date/Time: Tuesday, March 21, 2017 17:52 - CONCLUSION: 1. Cirrhosis. 2. Small volume ascites. Jean-Paul Cross Jr., MD Objective Remarks GENERAL: tired and jaundice appearing SKIN: jaundiced. No obvious rashes Cool and dry. HEAD: Atraumatic. Normocephalic. No temporal or scalp tenderness. EYES: Extraocular motions intact. +scleral icterus. No injection or drainage. ENT: Nose without drainage. Airway patent. NECK: Trachea midline. No JVD or lymphadenopathy. Supple, nontender, no meningeal signs. CARDIOVASCULAR: tachycardic without murmurs RESPIRATORY: Clear to auscultation. questionable crackles at lung bases. GASTROINTESTINAL: Abdomen soft, discomfort w deep palpation, + distended. difficult to assess for hepato-splenomegaly, or palpable masses. No guarding. MUSCULOSKELETAL: Extremities with +1 edema. N No calf tenderness. Negative Homans sign bilaterally. NEUROLOGICAL: Awake and alert. Motor and sensory grossly within normal limits but she is weak. Normal speech. A/P Problem List: (1) Neutropenia ICD Code: D70.9 (2) Abdominal pain ICD Code: R10.9 (3) Ascites ICD Code: R18.8 (4) HX OF BREAST MALIGNANCY ICD Code: V10.3 (5) UTI (urinary tract infection) ICD Code: N39.0 (6) Hypotension ICD Code: I95.9 Assessment and Plan 51 yo female with: Hypotension: continues to be labile. She has a UTI, will treat this with Rocephin. Given her immunocompromised state, will do a sepsis workup that includes lactic acid and blood cultures. EKG shows sinus tachy, normal axis, no ST or T wave changes. Will transfer to ICU for closer monitoring, until BP stabilizes, and she is more alert. HOLD lasix. Ammonia pending. CXR pending. Decreased Urine output: decrease urine output with worsening Cr. Nephrology consulted. metastatic breast cancer to the liver: pt known to Dr. Pierce. I had a long discussion w Dr. Pierce. She will evaluate the patient, Consult placed. At this time, she is agreeable to a GI consult as pt's LFTs have been worsening. Per Dr. Pierce, pt wants aggressive management and is not yet ready to transition to comfort measures. Dr. Pierce will speak w Dr. Recinos as well and notify her that pt is in the hospital. abdominal pain/ascites/liver failure: most likely from metastatic breast cancer. GI consult in place: T. Bili 12. AST 288 and ALT 59. Per GI: has chronic liver disease, maybe also have additional acute liver disease, hepatitis panel is pending. consider paracentesis. hypothyroidism: resumed home med poor appetite/dehydration: very poor appetite since starting the new chemo. Will get fig caprifier to speak w pt and make recs. Pt is a vegetarian. I have encouraged pt to try to eat, at least attempt to drink some ensure (which she hasn't). IVF 40 cc/hr, give cautiously given some pulmonary congestion. tachycardia: most likely from dehydration. monitor. DVT proph: lovenox. Discharge Planning D/C pending workup by nephro, gi, and improved clinical status. Problem Qualifiers (1) Neutropenia: Qualified Code: D70.1 - Chemotherapy-induced neutropenia (2) Abdominal pain: Qualified Code: R10.84 - Generalized abdominal pain (3) Ascites: Qualified Code: R18.0 - Malignant ascites Vanessa Valdez MD R3 Mar 22, 2017 08:50
[2017-03-22] MEDS: POLYETHYLENE GLYCOL 17 GM PKG PO SCH (09:00)
[2017-03-22] MEDS ORDERED: cefTRIAXone INJ 1,000 MG in SODIUM CHLORIDE 0.9% INJ 100 ML IV SCH (09:00)
--- NOTE | 2017-03-22 09:32 | RADRPT ---
EXAM DATE/TIME: 03/22/2017 08:42 [facility] COMPARISON: No previous studies available for comparison. INDICATIONS : Cough and congestion. MEDICAL HISTORY : Carcinoma, breast. SURGICAL HISTORY : Infusaport. ENCOUNTER: Initial ACUITY: 1 day PAIN SCORE: 0/10 LOCATION: chest FINDINGS: Single AP view of the chest. Lung volumes are low. Mild right hemidiaphragm elevation. Patchy opacity at the lung bases likely representing atelectasis. Right-sided Hsemhs-c-Hazb with the tip of the cat heter at the cavoatrial junction. Cardiomediastinal silhouette within normal limits. No evidence of p leural effusion or pneumothorax. Surgical clips in the neck bilaterally. CONCLUSION: Mild bilateral lower lung zone opacity likely represent atelectasis. Mild right hemidiaphragm elevati on. Josh Wong MD on March 22, 2017 at 9:29 Board Certified Radiologist. This report was verified electronically.
[2017-03-22] MEDS: SODIUM CHLORIDE 0.9% FLUSH 10 ML FLUSH IV FLUSH SCH ×2 (09:48→20:23)
--- NOTE | 2017-03-22 10:52 | PD.CONS ---
[facility] Service Nephrology Consult Requested By Reason for Consult Acute kidney injury Primary Care Physician Rachel Recinos MD History of Present Illness Ms. Sarabia has metastatic breast cancer. She apparently did not respond to Cisplatin. Has metastatic disease to the liver. She received another chemotherapeutic agent called Halaven. Patient was admitted with pancytopenia, abdominal pain. Thought to have UTI. She developed hypotension and transferred to ICU. She now has oliguric renal failure. She has hyperbilirubinemia and ascites. Review of Systems ROS Limitations: Clinical Condition, Altered Mental Status Past Family Social History Allergies: Coded Allergies: Adhesives (Verified Allergy, Severe, WELTS, 03/01/14) NO TAPE OR STERI STRIPS USE PAPER TAPE Past Medical History hypothyroidism metastatic breast cancer to the liver Past Surgical History bilateral mastectomies cholecystectomy thyroidectomy Reported Medications Active Ordered Medications Current Medications Medications (Trade) Dose Ordered Sig/Gerson Route Start Time Stop Time Status Last Admin (NS Flush) 2 ml UNSCH PRN IV FLUSH 03/21/17 05:00 (NS Flush) 2 ml BID IV FLUSH 03/21/17 09:00 03/22/17 09:48 (Narcan Inj) 0.4 mg UNSCH PRN IV 03/21/17 05:00 (Synthroid) 200 mcg DAILY@06 PO 03/21/17 06:00 03/22/17 05:11 (Miralax) 17 gm DAILY PO 03/22/17 09:00 (Marie-Colace) 1 tab BID PRN PO 03/21/17 09:45 (Milk Of Magnesia Liq) 30 ml DAILY PRN PO 03/21/17 09:45 (Zofran Inj) 4 mg Q6HR PRN IV PUSH 03/21/17 11:00 (Aldactone) 50 mg DAILY PO 03/21/17 14:30 03/21/17 14:58 Filgrastim 300 mcg 300 mcg DAILY@14 SQ 03/21/17 17:15 03/24/17 17:14 03/21/17 17:51 (D5W-NS 1000 ml Inj) 1,000 ml @ 42 mls/hr [id number] IV 03/21/17 20:00 03/21/17 22:30 (Albumin 5% Inj) 12.5 gm Q12H IV 03/22/17 08:00 03/23/17 07:59 03/22/17 08:25 (Atarax) 10 mg Q6H PRN PO 03/21/17 22:30 Morphine Sulfate 1 mg 1 mg Q4H PRN IV PUSH 03/22/17 12:00 (Rocephin Inj/NS Inj) 100 ml @ 200 mls/hr Q24H IV 03/22/17 09:00 03/22/17 09:45 Family History mother from esophageal cancer father: prostate cancer and atria fib Social History no history of ETOH or tobacco Physical Exam Vital Signs Vital Signs Date Time Temp Pulse Resp B/P Pulse Ox O2 Delivery O2 Flow Rate FiO2 03/22/17 08:33 96 21 03/22/17 08:00 95.6 109 24 82/43 95 03/22/17 04:00 96.6 115 20 102/50 95 03/22/17 00:00 96.2 121 22 126/80 98 03/21/17 20:00 115 03/21/17 20:00 96.0 115 20 118/72 98 03/21/17 17:00 96.3 113 12 105/53 96 03/21/17 15:00 96.3 113 16 97/54 100 03/21/17 11:15 97.5 111 18 124/55 97 Physical Exam GENERAL: jaundiced, lethargic. SKIN: Warm and dry. HEAD: Normocephalic. EYES: No scleral icterus. No injection or drainage. NECK: Supple, trachea midline. No JVD or lymphadenopathy. CARDIOVASCULAR: tachycardic. RESPIRATORY: Breath sounds equal bilaterally. No accessory muscle use. GASTROINTESTINAL: Abdomen is distended, diffuse tenderness. MUSCULOSKELETAL: No cyanosis, or edema. BACK: Nontender without obvious deformity. No CVA tenderness. Laboratory Laboratory Tests Test 03/21/17 03/22/17 13:50 05:09 Urine Color DARK-BROWN Urine Turbidity HAZY Urine pH 5.5 Urine Specific [place] 1.021 Urine Protein 30 Urine Glucose (UA) TRACE Urine Ketones NEG Urine Occult Blood SMALL Urine Nitrite NEG Urine Bilirubin LARGE Urine Urobilinogen 2.0 Urine Leukocyte Esterase NEG Urine RBC 5 Urine WBC 2 Urine Squamous Epithelial 6 Cells Urine Amorphous Sediment RARE Urine Bacteria MOD Urine Hyaline Casts 35 Urine Mucus FEW Microscopic Urinalysis Comment CULTURE INDICATED White Blood Count 0.6 Red Blood Count 3.14 Hemoglobin 9.8 Hematocrit 29.8 Mean Corpuscular Volume 94.8 Mean Corpuscular Hemoglobin 31.1 Mean Corpuscular Hemoglobin 32.8 Concent Red Cell Distribution Width 25.4 Platelet Count 61 Mean Platelet Volume 9.5 Neutrophils (%) (Auto) Lymphocytes (%) (Auto) Monocytes (%) (Auto) Eosinophils (%) (Auto) Basophils (%) (Auto) Neutrophils # (Auto) Lymphocytes # (Auto) Monocytes # (Auto) Eosinophils # (Auto) Basophils # (Auto) CBC Comment AUTO DIFF Differential Total Cells 100 Counted Neutrophils % (Manual) 40 Band Neutrophils % 11 Lymphocytes % 43 Monocytes % 1 Basophils % 2 Neutrophils # (Manual) 0.3 Metamyelocytes 1 Myelocytes 1 Nucleated Red Blood Cells 4 Differential Comment FINAL DIFF MANUAL Atypical Lymphocytes Plasma Cells 1 Dohle Bodies PRESENT Platelet Estimate LOW Platelet Morphology Comment NORMAL Spherocytes OCC Target Cells 1+ Ovalocytes 1+ [place] Bodies PRESENT Acanthocytes OCC Keratocytes OCC Prothrombin Time 24.0 Prothromb Time International 2.1 Ratio Activated Partial 53.7 Thromboplast Time Sodium Level 131 Potassium Level 4.5 Chloride Level 102 Carbon Dioxide Level 12.9 Anion Gap 16 Blood Urea Nitrogen 48 Creatinine 2.28 Estimat Glomerular Filtration 22 Rate Random Glucose 95 Calcium Level 7.1 Protein Corrected Calcium 8.1 Total Bilirubin 13.0 Aspartate Amino Transf 301 (AST/SGOT) Alanine Aminotransferase 61 (ALT/SGPT) Alkaline Phosphatase 358 Total Protein 5.3 Albumin 1.6 Date/Time Procedure Status Source Growth 03/22/17 09:00 Aerobic Blood Culture Received Blood Peripheral Pending 03/22/17 09:00 Anaerobic Blood Culture Received Blood Peripheral Pending 03/21/17 13:50 Urine Culture Received Urine Clean Catch Pending Result Diagram: 03/22/17 0509 03/22/17 0509 Assessment and Plan Problem List: (1) Acute kidney failure Plan: likely has developed ATN due to hypotension, sepsis. Obtain urine electrolytes. Continue IVF. Hold diuretics for the time being. Avoid nephrotoxic agents. Poor prognosis. If there is no response with conservative management, dialysis may be necessary, but given her overall poor prognosis, would not recommend dialysis. (2) Sepsis Plan: May have SBP. Needs broad spectrum antibiotics. She has severe metabolic acidosis. (3) Pancytopenia Plan: due to chemotherapy. Hematology following. On Filgrastim. (4) Breast cancer Plan: with liver metastatic disease as well as possible intraperitoneal mets. Poor prognosis. Assessment and Plan Thanks for the consult. I will follow. Addendum: Patient continued to decompensate. Dialysis was ordered because of severe metabolic acidosis. Micah Ledesma MD Mar 22, 2017 10:52
--- NOTE | 2017-03-22 11:05 | HHI.GIFU ---
Subjective Remarks Patient is resting in bed, lethargic, accompanied by family members, She was found lethargic this morning and halicat was initiated due to hypotension and change in condition and was transferred to the unit. (GarlandtanaiMchelemilyedwin BORJA) Objective Vitals I&O Vital Signs Date Time Temp Pulse Resp B/P Pulse Ox O2 Delivery O2 Flow Rate FiO2 03/22/17 08:33 96 21 03/22/17 08:00 95.6 109 24 82/43 95 03/22/17 04:00 96.6 115 20 102/50 95 03/22/17 00:00 96.2 121 22 126/80 98 03/21/17 20:00 115 03/21/17 20:00 96.0 115 20 118/72 98 03/21/17 17:00 96.3 113 12 105/53 96 03/21/17 15:00 96.3 113 16 97/54 100 03/21/17 11:15 97.5 111 18 124/55 97 I/O 03/21/17 03/21/17 03/21/17 03/22/17 03/22/17 03/22/17 07:00 15:00 23:00 07:00 15:00 23:00 Intake Total 480 ml 120 ml Balance 480 ml 120 ml Intake Oral 480 ml 120 ml Bladder Scan Volume Amount 808 ml 180 ml Laboratory Laboratory Tests Test 03/21/17 03/22/17 13:50 05:09 Urine Color DARK-BROWN Urine Turbidity HAZY Urine pH 5.5 Urine Specific [place] 1.021 Urine Protein 30 Urine Glucose (UA) TRACE Urine Ketones NEG Urine Occult Blood SMALL Urine Nitrite NEG Urine Bilirubin LARGE Urine Urobilinogen 2.0 Urine Leukocyte Esterase NEG Urine RBC 5 Urine WBC 2 Urine Squamous Epithelial 6 Cells Urine Amorphous Sediment RARE Urine Bacteria MOD Urine Hyaline Casts 35 Urine Mucus FEW Microscopic Urinalysis Comment CULTURE INDICATED White Blood Count 0.6 Red Blood Count 3.14 Hemoglobin 9.8 Hematocrit 29.8 Mean Corpuscular Volume 94.8 Mean Corpuscular Hemoglobin 31.1 Mean Corpuscular Hemoglobin 32.8 Concent Red Cell Distribution Width 25.4 Platelet Count 61 Mean Platelet Volume 9.5 Neutrophils (%) (Auto) Lymphocytes (%) (Auto) Monocytes (%) (Auto) Eosinophils (%) (Auto) Basophils (%) (Auto) Neutrophils # (Auto) Lymphocytes # (Auto) Monocytes # (Auto) Eosinophils # (Auto) Basophils # (Auto) CBC Comment AUTO DIFF Differential Total Cells 100 Counted Neutrophils % (Manual) 40 Band Neutrophils % 11 Lymphocytes % 43 Monocytes % 1 Basophils % 2 Neutrophils # (Manual) 0.3 Metamyelocytes 1 Myelocytes 1 Nucleated Red Blood Cells 4 Differential Comment FINAL DIFF MANUAL Atypical Lymphocytes Plasma Cells 1 Dohle Bodies PRESENT Platelet Estimate LOW Platelet Morphology Comment NORMAL Spherocytes OCC Target Cells 1+ Ovalocytes 1+ [place] Bodies PRESENT Acanthocytes OCC Keratocytes OCC Prothrombin Time 24.0 Prothromb Time International 2.1 Ratio Activated Partial 53.7 Thromboplast Time Sodium Level 131 Potassium Level 4.5 Chloride Level 102 Carbon Dioxide Level 12.9 Anion Gap 16 Blood Urea Nitrogen 48 Creatinine 2.28 Estimat Glomerular Filtration 22 Rate Random Glucose 95 Calcium Level 7.1 Protein Corrected Calcium 8.1 Total Bilirubin 13.0 Aspartate Amino Transf 301 (AST/SGOT) Alanine Aminotransferase 61 (ALT/SGPT) Alkaline Phosphatase 358 Total Protein 5.3 Albumin 1.6 Date/Time Procedure Status Source Growth 03/22/17 09:00 Aerobic Blood Culture Received Blood Peripheral Pending 03/22/17 09:00 Anaerobic Blood Culture Received Blood Peripheral Pending 03/21/17 13:50 Urine Culture Received Urine Clean Catch Pending Imaging Last Impressions Chest X-Ray 03/22/17 0000 Signed Impressions: Service Date/Time: Wednesday, March 22, 2017 08:42 - CONCLUSION: Mild bilateral lower lung zone opacity likely represent atelectasis. Mild right hemidiaphragm elevation. Josh Wong MD Liver Ultrasound 03/21/17 0000 Signed Impressions: Service Date/Time: Tuesday, March 21, 2017 17:52 - CONCLUSION: 1. Cirrhosis. 2. Small volume ascites. Jean-Paul Cross Jr., MD Physical Exam HEENT: normocephalic; atraumatic; + jaundice. NECK: Neck is supple, no JVD, no lymphadenopathy. CHEST: Chest is clear to auscultation and percussion. CARDIAC: Regular rate and rhythm with no murmur gallop or rubs. ABDOMEN: firm, nondistended,tender; bowel sounds are present in all four quadrants. EXTREMITIES: No clubbing, cyanosis, or edema. SKIN: Normal; no rash; + jaundice. OPENSTACK DEVELOPER: Lethargic (Amawi,Khawla GALLERY INTERN) Assessment and Plan Plan ASSESSMENT - elevated LFTs, jaundice, ascites - Worsening LFTs today. pt has hx BrCa with liver mets. 2 paracenteses in last 2 weeks. US 1. Cirrhosis. 2. Small volume ascites CT not done yet, spoke with nurse, will go for one today - nausea/vomiting - unclear etiology, ?new chemo. oncology consulted - suprapubic pain - unclear etiology. Will do CT - Thrombocytopenia/coagulopathy- oncology on the case - liver mets - oncology consulted. - Acute liver failure- nephrology on the case PLAN - await CT abd/pelvis, - clears for now, when ready to advance low sodium diet - diuretics - consider paracentesis if abd becomes tense - supportive care - further recommendations to follow results above This pt seen by myself and Dr Dover and this note is written on his behalf ( Ellen Limon) Physician Comments Seen and examined, new onset encephalopathy, drug induced vs liver related vs metabolic. Will check viral serology to rule out reactivation of occult infection, check ammonia level and avoid hepatotoxic meds if possible Will follow up with you. (Kaley Dover MD) Ellen Limon Mar 22, 2017 11:05 Kaley Dover MD Mar 22, 2017 11:32
[2017-03-22] MEDS ORDERED: CHLORHEXIDINE GLUCONATE 2 % 1 PACK (2 CLOTHS)(extra cloths) TOPICAL PRN (11:45)
[2017-03-22] MEDS ORDERED: MORPHINE SULFATE 4 MG/ML INJ IV PUSH PRN (12:00)
--- NOTE | 2017-03-22 12:42 | RADRPT ---
EXAM DATE/TIME: 03/22/2017 11:35 [facility] COMPARISON: US ABDOMEN - LIVER, March 21, 2017, 17:52. INDICATIONS : Diffuse abdomen pain today. ORAL CONTRAST: No oral contrast ingested. RADIATION DOSE: 16.32 CTDIvol (mGy) MEDICAL HISTORY : Carcinoma, thyroid. Carcinoma, breast. SURGICAL HISTORY : Mastectomy, bilateral. ENCOUNTER: Initial ACUITY: 1 day PAIN SCALE: 8/10 LOCATION: Bilateral abdomen TECHNIQUE: Volumetric scanning of the abdomen and pelvis was performed. Using automated exposure control and ad justment of the mA and/or kV according to patient size, radiation dose was kept as low as reasonably achievable to obtain optimal diagnostic quality images. FINDINGS: LOWER LUNGS: Bilateral moderate severity lower lobe atelectasis/consolidation. LIVER: Multiple ill-defined rounded hypodensities scattered throughout the liver suspicious for metastatic d isease. The largest measures 2.8 cm in the posterior right lobe. SPLEEN: Normal size without lesion. PANCREAS: Within normal limits. KIDNEYS: Normal in size and shape. There is no mass, stone, or hydronephrosis. ADRENAL GLANDS: Within normal limits. VASCULAR: There is no aortic aneurysm. BOWEL/MESENTERY: Ascites is seen in all 4 quadrants. No evidence of bowel dilatation. No free air. Appendix not identi fied. ABDOMINAL WALL: Superficial soft tissue edema diffusely. RETROPERITONEUM: Multiple proximally 1 cm retroperitoneal lymph nodes, nonspecific. BLADDER: Lozano catheter in place. REPRODUCTIVE: Within normal limits. INGUINAL: There is no lymphadenopathy or hernia. MUSCULOSKELETAL: Fracture of the right side of the L1 vertebral body appears subacute to chronic. There is resulting m ild central canal narrowing. CONCLUSION: 1. Numerous hypodense lesions in the liver suspicious for metastatic disease. 2. Moderate ascites and anasarca. 3. Fracture of the L1 vertebral body likely subacute to chronic. 4. Multiple nonspecific approximately 1 cm retroperitoneal lymph nodes. Josh Wong MD on March 22, 2017 at 12:35 Board Certified Radiologist. This report was verified electronically.
[2017-03-22] MEDS ORDERED: LACTULOSE SYRUP 20 GM/30 ML CUP PO ONE (13:30)
[2017-03-22] MEDS ORDERED: Vancomycin Consult Pharmacy 1 EA OTHER PRN (13:30)
--- NOTE | 2017-03-22 13:37 | HHI.FPPN ---
Addendum to progress note ADDENDUM Reason for addendum: Additonal documentation Additional information Patient reevaluated in [facility]. Family is at bedside. She is sleepy but arousable. Endorses some abdominal pain. Blood pressure in the 90s/40s. Labs reviewed: Lactic acid 8.0, ammonia 43, blood cultures and urine cultures obtained and pending Imaging: CT abdomen suspicious for metastatic disease to the liver. Moderate ascites and anasarca. Fracture of L1. Chest x-ray showed mild bilateral lower lung zone opacity representing atelectasis. Mild right hemidiaphragm elevation. Assessment and plan: - Decrease mental status likely multifactorial in etiology. The patient received IV morphine, her ammonia is elevated, and now meets sepsis criteria. - Vanc (pharmacy consult, renally dose) and Zosyn 6/3- - lactic acid protocol - Lactulose 30 mg by mouth [address] Lemus critical care. Will place formal consult. Vanessa Valdez MD R3 Mar 22, 2017 13:37
--- NOTE | 2017-03-22 13:57 | PD.CONS ---
[facility] Service Critical Care Medicine Consult Requested By Dr. Valdez Reason for Consult Septic shock Neutropenic sepsis Acute kidney failure Severe lactic acidosis Pancytopenia Coagulopathy Liver failure Hyperbilirubinemia Ascites Primary Care Physician Rachel Recinos MD History of Present Illness Patient is a 51-year-old female with past medical history significant for previous thyroid cancer status post thyroidectomy, hypothyroidism, metastatic breast cancer to the liver presented to the emergency room yesterday 03/21 with severe lower and mid abdominal pain. Patient was admitted to the hospitalist service with neutropenic sepsis. She was placed on ceftriaxone. Unclear source possible UTI versus SBP. Pt has had 2 paracentesis in 2 weeks. Apparently patient's ca recently progressed on cisplatin, developed progressive liver metastatic disease with hepatic failure. She was started on palliative therapy with [place] by Dr. Pierce. Patient was moved to the [facility] today for persistent hypotension and lethargy. New labs showed lactic acid 8.0, ammonia 43, blood cultures and urine cultures obtained. CT abdomen suspicious for metastatic disease to the liver, also moderate ascites and anasarca. Rocephin was discontinued and Zosyn was started with single dose of vancomycin. Patient had been progressively oliguric and creatinine increased to 2.3 from 1 on admission. I evaluated the patient in the ICU. She appears acutely ill jaundiced, in severe distress. Bedside ultrasound showed moderate ascites. I discussed with patient and she requests full code including intubation. Her ABG shows severe metabolic acidosis partially compensated ABG 7. with BE -18. I will give total 3 L normal saline fluid boluses, 1 amp of bicarbonate and change fluid to bicarbonate infusion. Will wait 24 hours for response if not patient will need hemodialysis or CVVH. Discussed with Dr. Ledesma Review of Systems ROS Limitations: Clinical Condition Past Family Social History Allergies: Coded Allergies: Adhesives (Verified Allergy, Severe, WELTS, 03/01/14) NO TAPE OR STERI STRIPS USE PAPER TAPE Past Medical History Metastatic breast cancer. Prior history of thyroid cancer. Hypothyroidism. Hepatic failure. Ascites. Anemia. Past Surgical History Bilateral Mastectomy with reconstruction. Thyroidectomy. Bilateral salpingo-oophorectomy. Cholecystectomy. Neck lymph node biopsy. Reported Medications Synthroid Active Ordered Medications Reviewed Family History Mother had esophageal cancer, is , father has prostate cancer Social History No alcohol or tobacco use Physical Exam Vital Signs Vital Signs Date Time Temp Pulse Resp B/P Pulse Ox O2 Delivery O2 Flow Rate FiO2 03/22/17 12:00 97.9 106 18 92/43 96 03/22/17 12:00 106 03/22/17 11:00 112 03/22/17 08:33 96 21 03/22/17 08:00 95.6 109 24 82/43 95 03/22/17 04:00 96.6 115 20 102/50 95 03/22/17 00:00 96.2 121 22 126/80 98 03/21/17 20:00 115 03/21/17 20:00 96.0 115 20 118/72 98 03/21/17 17:00 96.3 113 12 105/53 96 03/21/17 15:00 96.3 113 16 97/54 100 Physical Exam GENERAL: This is a acutely ill-appearing woman. Severely jaundiced in severe distress, lethargic SKIN: Warm and dry. Jaundiced. HEAD: Atraumatic. Normocephalic. EYES: Pupils equal and round. Sclera are icteric. ENT: No nasal bleeding or discharge. Mucous membranes dry NECK: Trachea midline. Neck is supple. CARDIOVASCULAR: Regular rhythm, tachycardic rate. No murmurs RESPIRATORY: Positive accessory muscle use. Lungs are clear, but diminished. GASTROINTESTINAL: Abdomen is distended diffusely tender. Positive hepatomegaly. The abdomen is diffusely tender. MUSCULOSKELETAL: No obvious deformities. No edema. NEUROLOGICAL: Drowsy but arousable. No obvious cranial nerve deficits. Motor grossly within normal limits. Normal speech. Laboratory Laboratory Tests Test 03/22/17 03/22/17 05:09 12:20 White Blood Count 0.6 Red Blood Count 3.14 Hemoglobin 9.8 Hematocrit 29.8 Mean Corpuscular Volume 94.8 Mean Corpuscular Hemoglobin 31.1 Mean Corpuscular Hemoglobin 32.8 Concent Red Cell Distribution Width 25.4 Platelet Count 61 Mean Platelet Volume 9.5 Neutrophils (%) (Auto) Lymphocytes (%) (Auto) Monocytes (%) (Auto) Eosinophils (%) (Auto) Basophils (%) (Auto) Neutrophils # (Auto) Lymphocytes # (Auto) Monocytes # (Auto) Eosinophils # (Auto) Basophils # (Auto) CBC Comment AUTO DIFF Differential Total Cells 100 Counted Neutrophils % (Manual) 40 Band Neutrophils % 11 Lymphocytes % 43 Monocytes % 1 Basophils % 2 Neutrophils # (Manual) 0.3 Metamyelocytes 1 Myelocytes 1 Nucleated Red Blood Cells 4 Differential Comment FINAL DIFF MANUAL Atypical Lymphocytes Plasma Cells 1 Dohle Bodies PRESENT Platelet Estimate LOW Platelet Morphology Comment NORMAL Spherocytes OCC Target Cells 1+ Ovalocytes 1+ [place] Bodies PRESENT Acanthocytes OCC Keratocytes OCC Prothrombin Time 24.0 Prothromb Time International 2.1 Ratio Activated Partial 53.7 Thromboplast Time Sodium Level 131 Potassium Level 4.5 Chloride Level 102 Carbon Dioxide Level 12.9 Anion Gap 16 Blood Urea Nitrogen 48 Creatinine 2.28 Estimat Glomerular Filtration 22 Rate Random Glucose 95 Calcium Level 7.1 Protein Corrected Calcium 8.1 Total Bilirubin 13.0 Aspartate Amino Transf 301 (AST/SGOT) Alanine Aminotransferase 61 (ALT/SGPT) Alkaline Phosphatase 358 Total Protein 5.3 Albumin 1.6 Lactic Acid Level 8.0 Ammonia 43 Date/Time Procedure Status Source Growth 03/22/17 12:31 Aerobic Blood Culture Received Blood Peripheral Pending 03/22/17 12:31 Anaerobic Blood Culture Received Blood Peripheral Pending 03/21/17 13:50 Urine Culture - Preliminary Resulted Urine Clean Catch NO GROWTH IN 24 HOURS. Result Diagram: 03/22/17 0509 03/22/17 0509 Septic Shock Reassessment Heart: Other (tachycardic) Lungs: Diminished Skin: Cold Peripheral Pulses: Weak Right Radial Weak Left Radial Capillary Refill: <2 seconds Assessment and Plan Assessment and Plan NEURO: Metabolic encephalopathy Hyperammonemia -Monitor neuro status closely, avoid sedation -Lactulose 30 mL daily RESP: Respiratory insufficiency Severe metabolic acidosis -Nasal cannula oxygen -DuoNeb every 6 hours scheduled and when necessary -May need endotracheal intubation if worsening acidosis CV: Septic shock Lactic acidosis -Normal saline IV fluids 3L bolus and bicarb gtt at 150 ml per hour -Check serial lactic acid -Levophed as needed to keep map above 65 GI: Hepatic failure Liver metastases -Keep nothing by mouth, IV Protonix -Correct coagulopathy -Not a liver transplant candidate due to metastatic breast cancer : Acute kidney failure Severe metabolic acidosis -Monitor renal function closely. Lozano catheter. Acute renal failure workup per nephrology -Correction of metabolic acidosis with bicarbonate IV push and bicarbonate infusion -May need hemodialysis if not improving in 24 hours ID: Septic shock Neutropenic sepsis Probable UTI Probable SBP -IV vancomycin 1 dose and pharmacy to dose. Zosyn renally adjusted to call for Pseudomonas -Follow-up on blood and urine culture. Send ascites fluid for further studies HEME: Metastatic breast cancer on palliative chemotherapy Chemotherapy-induced pancytopenia -Monitor CBC, CMP, coags -Transfuse 1 unit of platelets and FFP in anticipation of invasive procedures -Prognosis appears very poor ENDO: -Replace electrolytes per protocol PROPH: -Bilateral lower extremity SCDs. IV Protonix 40 mg daily. Chemical DVT prophylaxis contraindicated due to coagulopathy and thrombocytopenia LINES: Utilize peripheral IVs, place central line CC time 110 min excluding procedural time Further respiratory decompensation, pH 7.19 despite bicarbonate infusion and IV push. Patient appears to be very lethargic and tachypneic but starting out. After discussion with patient's and patient she was endotracheally intubated and placed on mechanical ventilation. For hypotension started on Levothroid and rapidly increased to 20 mics per minute. Left subclavian central line also placed. Patient was evaluated and treated multiple times. Additional critical care time 35 minutes excluding procedures Total CCT 145 MIN excluding procedures Code Status Full Discussed Condition With Dr. Ledesma, Dr. Valdez, bedside RN, and patient Manju Lemus MD Mar 22, 2017 13:57
[2017-03-22] MEDS ORDERED: PIPERACIL-TAZO 4.5 GM PREMIX 100 ML IV SCH (14:00)
[2017-03-22 14:42] LABS: BLOOD GAS BASE EXCESS -18.4 mmol/L (-2-2); BLOOD GAS CARBOXYHEMOGLOBIN 1.3 % (0-4); BLOOD GAS HCO3 8 mmol/L (22-26); BLOOD GAS METHEMOGLOBIN 1.1 % (0-2); BLOOD GAS PCO2 20 mmHg (38-42); BLOOD GAS PO2 76 mmHg (61-120)
[2017-03-22 14:43] LABS: BLOOD GAS O2 HGB SATURATION 91 % (90-100); BLOOD GAS OXYGEN CONTENT 11.2 Vol % (12.0-20.0); BLOOD GAS TOTAL HGB 8.7 G/DL (12.0-16.0); CRITICAL VALUE YES; DRAW SITE RT BRACHIAL; FIO2 21 %; NUMBER OF ARTERIAL PUNCTURES 2; STAT YES; TEMP CORR TO 98.6; ULNAR PULSE PRESENT
[2017-03-22] MEDS ORDERED: SODIUM BICARBONATE 8.4% INJ 50 ML ONE (14:45)
--- NOTE | 2017-03-22 14:49 | EKG ---
Date Performed: 03/22/2017 Time Performed: 08:40:41 PTAGE: 51 years EKG: Sinus tachycardia Otherwise within normal limits Since PREVIOUS TRACING 01/25/2014, no significant change. PREVIOUS TRACIN01/25/2014 10.02 DOCTOR: Jose Alejandro Santos Interpretating Date/Time 03/22/2017 14:47:37
[2017-03-22] MEDS: FILGRASTIM 300 MCG/ML VIAL SQ SCH (14:51)
[2017-03-22] MEDS ORDERED: RESP: ALBUTEROL 2.5 MG/IPRATROPIUM 0.5 MG NEB (PRN) NEB (15:00)
[2017-03-22] MEDS ORDERED: SODIUM BICARBONATE 8.4% INJ 50 MEQ/50 ML SYR IV PUSH ONE (15:00)
[2017-03-22] MEDS ORDERED: TERBUTALINE INJ 1 MG/ML AMP SQ PRN ×2 (15:15→18:15)
[2017-03-22] MEDS ORDERED: NOREPINEPHRINE-DEXTROSE DRIP 250 ML IV SCH ×2 (15:15→20:15)
[2017-03-22] MEDS: SODIUM BICARBONATE 8.4% INJ 75 MEQ in SODIUM CHLOR 0.45% 1000 ML INJ 1,000 ML IV SCH ×2 (15:22→20:23)
[2017-03-22] MEDS: RESP: ALBUTEROL 2.5 MG/IPRATROPIUM 0.5 MG NEB (SCH) NEB ×2 (15:27→22:00)
[2017-03-22] MEDS ORDERED: VANCOMYCIN INJ 1,250 MG in SODIUM CHLOR 0.9% 250 ML INJ 250 ML IV ONE (16:00)
[2017-03-22] MEDS: DEXT 5%-NACL 0.9% 1000 ML INJ 1,000 ML IV SCH (16:27)
[2017-03-22 16:30] LABS: BLOOD GAS BASE EXCESS -18.8 mmol/L (-2-2); BLOOD GAS CARBOXYHEMOGLOBIN 1.1 % (0-4); BLOOD GAS HCO3 8 mmol/L (22-26); BLOOD GAS METHEMOGLOBIN 1.1 % (0-2); BLOOD GAS O2 HGB SATURATION 89 % (90-100); BLOOD GAS OXYGEN CONTENT 11.4 Vol % (12.0-20.0); BLOOD GAS PCO2 22 mmHg (38-42); BLOOD GAS PO2 74 mmHg (61-120); BLOOD GAS TOTAL HGB 9.1 G/DL (12.0-16.0); TEMP CORR TO 98.6
[2017-03-22] MEDS ORDERED: ROCURONIUM INJ 50 MG/5 ML VIAL ONE (16:30)
[2017-03-22] MEDS ORDERED: ETOMIDATE 20 MG/10 ML VIAL ONE (16:30)
[2017-03-22] MEDS ORDERED: MIDAZOLAM HCL 5 MG/ML VIAL (1 ML) ONE ×2 (16:30→17:20)
[2017-03-22 16:31] LABS: CRITICAL VALUE YES; DRAW SITE RT BRACHIAL; FIO2 21 %; NUMBER OF ARTERIAL PUNCTURES 1; STAT YES; ULNAR PULSE PRESENT
--- NOTE | 2017-03-22 16:37 | PD.PROCEDR ---
Procedure Note Procedure Paracentesis Note: Informed consent obtained and time out performed Patient was placed in L lateral decubitus position. LLQ site marked with US. Patient prepped and draped under sterile precautions. Site anesthetized with 1% lidocaine. Paracentesis Angiocath was introduced into the peritoneal space and needle was removed and approximately 50 mL brownish yellow slightly cloudy fluid collected for further studies. Angiocath was connected to the Vacutainer and additional approximately 2.3 L of slightly cloudy dark brownish yellow fluid was removed. Blood loss was less than 2 mL. Patient tolerated procedure well Manju Lemus MD Mar 22, 2017 16:37
[2017-03-22] MEDS ORDERED: PROPOFOL 1000 MG/100 ML INJ 100 ML ONE (16:57)
--- NOTE | 2017-03-22 17:07 | PD.PROCEDR ---
Procedure Note Procedure After the risks and benefits were discussed the following procedure was performed: INTUBATION: The patient was put in optimal position for the procedure. Rapid sequence intubation was initiated by me using 20 milligrams of etomidate IV and 5 mg milligrams of Versed IV. DL with Mac 4 blade Grade 1 view, single attempt. The patient was intubated with a 8.0 cuffed endotracheal tube. Tube placement was confirmed by visualization of the tube and balloon passing through the cords , capnometry and subsequent chest x-ray. Breath sounds were equal and well aerated bilaterally postintubation. No breath sounds over stomach. Patient tolerated procedure well. Manju Lemus MD Mar 22, 2017 17:07
--- NOTE | 2017-03-22 17:09 | PD.PROCEDR ---
Central Line Procedure REASON FOR PROCEDURE Central venous access PROCEDURE PERFORMED Central line placement: L subclavian central line CONSENT Informed consent for procedure was obtained from . The risks and benefits of the procedure were discussed to include but limited to bleeding, clot formation, infection, and even . ANESTHESIA Local injection of 1% Lidocaine DESCRIPTION OF THE PROCEDURE The patient was placed in supine, mild Trendelenburg position. The area was exposed and cleansed with ChloraPrep, times two. Large sterile drape was used to cover the patient, with the site exposed, under sterile conditions including cap, face mask, sterile gown, and sterile gloves. On single attempt, the introducer needle was inserted with negative pressure in syringe and venous flash was obtained. The guide wire was then advanced without any restriction and the needle was removed. The dilator was used without any complications. Using Seldinger technique the 20 CM 7F triple lumen catheter was advanced over the guide wire to a depth of 16 centimeters. The guide wire was removed. All ports were aspirated with dark venous blood return and flushed easily with sterile saline. All ports were capped. Antibiotic disc was placed around central line at puncture site. The central line was secured to the skin with two interrupted 2.0 silk sutures. The area was bandaged with sterile see- through central line bandage. COMPLICATIONS: No apparent complications ESTIMATED BLOOD LOSS: Less than 1 cc. Manju Lemus MD Mar 22, 2017 17:09
[2017-03-22] MEDS: VASOPRESSIN 40 U/D5W 100 ML Hypotension, do NOT titrate (enter ordered rate) IV SCH ×2 (17:15)
[2017-03-22 17:34] LABS: BLOOD GAS CARBOXYHEMOGLOBIN 0.7 % (0-4); BLOOD GAS HCO3 9 mmol/L (22-26); BLOOD GAS METHEMOGLOBIN 0.9 % (0-2); BLOOD GAS O2 HGB SATURATION 98 % (90-100); BLOOD GAS OXYGEN CONTENT 13.5 Vol % (12.0-20.0); BLOOD GAS PCO2 28 mmHg (38-42); BLOOD GAS PO2 373 mmHg (61-120); BLOOD GAS TOTAL HGB 9.1 G/DL (12.0-16.0); CRITICAL VALUE YES; OXYGEN DEVICE VENTILATOR; TEMP CORR TO 98.6
[2017-03-22 17:35] LABS: DRAW SITE RT BRACHIAL; FIO2 100 %; NUMBER OF ARTERIAL PUNCTURES 1; STAT NO; ULNAR PULSE PRESENT; VENT SETTINGS PRVC/AC
--- NOTE | 2017-03-22 17:49 | PD.PROCEDR ---
Central Line Procedure REASON FOR PROCEDURE Central venous access PROCEDURE PERFORMED Central line placement: RIJ Vascath US guided CONSENT Informed consent for procedure was obtained and time out performed. The risks and benefits of the procedure were discussed to include but limited to bleeding , clot formation, infection, and even . ANESTHESIA Local injection of 1% Lidocaine DESCRIPTION OF THE PROCEDURE The patient was placed in supine, mild Trendelenburg position. The area was exposed and cleansed with ChloraPrep, times two. Large sterile drape was used to cover the patient, with the site exposed, under sterile conditions including cap, face mask, sterile gown, and sterile gloves. On single attempt, the introducer needle was inserted with negative pressure in syringe and venous flash was obtained. The guide wire was then advanced without any restriction and the needle was removed. The dilator was used without any complications. Using Seldinger technique the 20 CM 14F two lumen vascath was advanced over the guide wire to a depth of 17 centimeters. The guide wire was removed. All ports were aspirated with dark venous blood return and flushed easily with sterile saline. All ports were capped. Antibiotic disc was placed around central line at puncture site. The central line was secured to the skin with two interrupted 2.0 silk sutures. The area was bandaged with sterile see- through central line bandage. RADIOLOGICAL DATA Ultrasound guidance was used to locate RIJ. Doppler/color flow was used to confirm venous flow. COMPLICATIONS: No apparent complications ESTIMATED BLOOD LOSS: Less than 1 cc. Manju Lemus MD Mar 22, 2017 17:49
[2017-03-22] MEDS ORDERED: VANCOMYCIN INJ 1,000 MG in SODIUM CHLOR 0.9% 250 ML INJ 250 ML IV SCH (18:00)
--- NOTE | 2017-03-22 18:01 | RADRPT ---
EXAM DATE/TIME: 03/22/2017 17:01 [facility] COMPARISON: CHEST SINGLE AP, March 22, 2017, 8:42. INDICATIONS : Central line and vascath placement. MEDICAL HISTORY : Carcinoma, breast. SURGICAL HISTORY : Infusaport. ENCOUNTER: Initial ACUITY: 1 day PAIN SCORE: Non-responsive. LOCATION: Bilateral chest FINDINGS: The endotracheal tube tip is 1 cm above the darlyn. Left subclavian catheter tip projects over the m id superior vena cava. Right [id number] catheter tip projects over the mid superior vena cava. N o evidence of pneumothorax. Gastric tube traverses the [id number]. Patchy infiltrates are presen t in the left mid and lower lung and causes loss of portions of the left hemidiaphragm. No consolida tive infiltrates in right lung. The heart is normal size. Multiple hemoclips in the low neck. CONCLUSION: 1. ET tube tip is within 1 cm of the darlyn and needs to be withdrawn 1.0-1.5 cm. 2. Left subclavian catheter in good position. No evidence of pneumothorax. 3. Patchy non-consolidative infiltrates in the left lower lung. Jean-Paul Yanez MD on March 22, 2017 at 17:57 Board Certified Radiologist. This report was verified electronically.
[2017-03-22] MEDS ORDERED: ALBUMIN HUMAN 25% 25 GM/100 ML BAGP IV ONE (18:15)
--- NOTE | 2017-03-22 18:15 | RADRPT ---
EXAM DATE/TIME: 03/22/2017 17:43 [facility] COMPARISON: CHEST SINGLE AP, March 22, 2017, 17:01. INDICATIONS : Evaluate for vas-cath placement. MEDICAL HISTORY : Carcinoma, breast. SURGICAL HISTORY : Infusaport. ENCOUNTER: Subsequent ACUITY: 1 day PAIN SCORE: Non-responsive. LOCATION: chest FINDINGS: The endotracheal tube is at the level of the darlyn and needs be withdrawn 1.5 cm. A subclavian cath eter tip projects over the proximal superior vena cava. Right Ddfdlr-[id number]-[id number] catheter projects over t he mid superior vena cava. Interval placement of right internal jugular catheter with the tip projec mary over the right atrium. No evidence of pneumothorax on either side. The heart is normal in size. Patchy infiltrates left lower lung slightly improved from prior. Right lung is clear. The heart i s normal in size. Gastric tube tip and side-port project within the stomach. CONCLUSION: 1. Right internal jugular catheter in good position. No evidence pneumothorax. 2. ET tube tip is at the darlyn and needs to be withdrawn 1.5 cm. 3. Stable patchy infiltrates in the left lower lung. Jean-Paul Yanez MD on March 22, 2017 at 18:11 Board Certified Radiologist. This report was verified electronically.
[2017-03-22] MEDS ORDERED: HEPARIN SODIUM - IV 10,000 UNITS/10 ML VIAL OTHER PRN (18:30)
[2017-03-22] MEDS ORDERED: GELATIN 12 MM/7 MM FOAM TOPICAL PRN (18:30)
[2017-03-22] MEDS ORDERED: GENTAMICIN SULFATE (DIALYSIS USE ONLY) 20 MG/2 ML VIAL OTHER PRN (18:30)
[2017-03-22] MEDS ORDERED: MANNITOL 12.5 GM/50 ML VIAL IV PRN (18:30)
[2017-03-22] MEDS ORDERED: cloNIDine HCL 0.1 MG TAB PO PRN (18:30)
[2017-03-22] MEDS ORDERED: HEPARIN SODIUM - IV 10,000 UNITS/10 ML VIAL IV FLUSH PRN (18:30)
[2017-03-22] MEDS ORDERED: diphenhydrAMINE HCL 25 MG CAP PO PRN (18:30)
[2017-03-22] MEDS ORDERED: SODIUM CHLORIDE 0.9% FLUSH 10 ML FLUSH IV FLUSH PRN (18:30)
[2017-03-22] MEDS ORDERED: ONDANSETRON HCL 4 MG/2 ML VIAL IV PRN (18:30)
[2017-03-22] MEDS ORDERED: ACETAMINOPHEN 325 MG TAB PO PRN (18:30)
[2017-03-22] MEDS ORDERED: NITROGLYCERIN 0.4 MG SL 25 TABS/BTL SL PRN (18:30)
[2017-03-22] MEDS ORDERED: ALBUMIN HUMAN 25% 25 GM/100 ML BAGP IV PRN (18:30)
[2017-03-22] MEDS ORDERED: SODIUM CHLOR 0.9% 1000 ML IV PRN ×2 (18:30)
[2017-03-22] MEDS ORDERED: NS 250 ML IV PRN (18:30)
[2017-03-22] MEDS ORDERED: PHENYLEPHRINE INJ 40 MG in DEXTROSE 5% IN WATE 500 ML INJ 496 ML IV SCH ×2 (19:15)
[2017-03-22 19:26] LABS: PERITONEAL WBC 1027 /MM3 (0-10)
[2017-03-22 19:27] LABS: PERITONEAL HISTIOCYTES 7 %; PERITONEAL LYMPHS 39 %; PERITONEAL MESOTHELIAL 2 %; PERITONEAL MONOS 4 %; PERITONEAL POLYS(SEGS) 48 %
[2017-03-22] MEDS ORDERED: MIDAZOLAM 100 MG/ML INJ 100 ML IV SCH (19:30)
[2017-03-22] MEDS ORDERED: fentaNYL DRIP 250 ML IV SCH (19:30)
[2017-03-22] MEDS: PIPERACIL-TAZO 3.375 GM PREMIX 50 ML IV SCH (20:22)
[2017-03-22 20:45] LABS: LACTIC ACID GHOST NOT REPORTABLE
[2017-03-22] MEDS: DOCUSATE SODIUM 50 MG/SENNA 8.6 MG TAB PO SCH (21:00)
[2017-03-22 21:08] LABS: BLOOD GAS BASE EXCESS -8.9 mmol/L (-2-2); BLOOD GAS HCO3 16 mmol/L (22-26); BLOOD GAS O2 HGB SATURATION 67 % (90-100); BLOOD GAS OXYGEN CONTENT 9.3 Vol % (12.0-20.0); BLOOD GAS PCO2 29 mmHg (38-42); BLOOD GAS PO2 36 mmHg (61-120); BLOOD GAS TOTAL HGB 9.9 G/DL (12.0-16.0); CRITICAL VALUE YES; OXYGEN DEVICE VENTILATOR; TEMP CORR TO 98.6
[2017-03-22 21:09] LABS: DRAW SITE RT RADIAL; FIO2 60 %; VENT SETTINGS PRVC/AC
[2017-03-22 21:10] LABS: NUMBER OF ARTERIAL PUNCTURES 2; STAT NO; ULNAR PULSE PRESENT
[2017-03-22 21:25] LABS: BLOOD GAS BASE EXCESS -9.2 mmol/L (-2-2); BLOOD GAS CARBOXYHEMOGLOBIN 1.1 % (0-4); BLOOD GAS HCO3 15 mmol/L (22-26); BLOOD GAS METHEMOGLOBIN 1.2 % (0-2); BLOOD GAS O2 HGB SATURATION 97 % (90-100); BLOOD GAS OXYGEN CONTENT 11.8 Vol % (12.0-20.0); BLOOD GAS PCO2 28 mmHg (38-42); BLOOD GAS PO2 182 mmHg (61-120); BLOOD GAS TOTAL HGB 8.3 G/DL (12.0-16.0); TEMP CORR TO 98.6
[2017-03-22 21:26] LABS: CRITICAL VALUE YES; OXYGEN DEVICE VENTILATOR
[2017-03-22 21:27] LABS: DRAW SITE ART LINE; STAT NO; VENT SETTINGS PRVC/AC
[2017-03-22 22:23] LABS: HEMATOCRIT 24.9 % (35.0-46.0); HEMO FLAGS AUTO DIFF; MEAN CELL VOLUME 94.2 FL (80.0-100.0); MEAN CORPUSCULAR HEMOGLOBIN 31.6 PG (27.0-34.0); MEAN CORPUSCULAR HGB CONC 33.6 % (32.0-36.0); PLATELET COUNT 66 TH/MM3 (150-450); RED BLOOD COUNT 2.64 MIL/MM3 (4.00-5.30); RED CELL DISTRIBUTION WIDTH 25.2 % (11.6-17.2)
[2017-03-22 22:42] LABS: ANION GAP 19 MEQ/L (5-15); AST (GOT) 339 U/L (15-37); BICARBONATE 17.9 MEQ/L (21.0-32.0); BLOOD UREA NITROGEN 29 MG/DL (7-18); CHLORIDE 103 MEQ/L (98-107); GLOMERULAR FILTRATION RATE 29 ML/MIN (>89); POTASSIUM 3.2 MEQ/L (3.5-5.1); SODIUM (NA) 140 MEQ/L (136-145)
[2017-03-22 22:45] LABS: ALKALINE PHOSPHATASE 244 U/L (45-117); ALT (GPT) 58 U/L (10-53)
[2017-03-22 23:14] LABS: BANDS 8 % (0-6); CORRECTED NUCLEATED RBC 8 /100 WBC (0-0); NEUTROPHIL # MANUAL DIFF 0.2 TH/MM3 (1.8-7.7); PLASMA CELLS 1 % (0-0); POLYS (SEG NEUTROPHILS) 30 % (16-70); WBC DIFF SAMPLE 100
[2017-03-22 23:17] LABS: ACANTHOCYTES OCC (NORMAL); TARGET CELLS 1+ (NORMAL)
[2017-03-22 23:18] LABS: DOHLE BODIES PRESENT (NONE SEEN); HOWELL-JOLLY BODIES PRESENT (NONE SEEN); OVALOCYTES 1+ (NORMAL); PLATELET ESTIMATE SMEAR LOW (NORMAL); PLATELET MORPHOLOGY NORMAL (NORMAL); SCAN/DIFF FINAL DIFF MANUAL; STOMATOCYTES 1+ (NORMAL)
[2017-03-22 23:25] LABS: WHITE BLOOD COUNT 0.5 TH/MM3 (4.0-11.0)
[2017-03-22] MEDS ORDERED: SODIUM BICARBONATE 8.4% INJ 50 MEQ/50 ML SYR IV ONE (23:30)
[2017-03-23] VITALS (11 sets, daily range): BP systolic 65–117; BP diastolic 37–55; PULSE 125–130; RESP 23–27; TEMP 98.2–98.7; O2SAT 91–100
[2017-03-23] MEDS: NOREPINEPHRINE 16 MG/D5W 250 ML IV SCH ×4 (00:40→06:28)
[2017-03-23] MEDS: PHENYLEPHRINE HCL 160 MG/D5W 484 ML ADMIX IV SCH ×4 (00:40→07:52)
--- NOTE | 2017-03-23 00:51 | PD.PROCEDR ---
Procedure Note Procedure Radial arterial line A time-out was completed verifying correct patient, procedure, site, positioning , and special equipment if applicable. Allens test was performed to ensure adequate perfusion. The patients right wrist was prepped and draped in sterile fashion. 1% Lidocaine was used to anesthetize the area. A 18G Arrow arterial line was introduced into the radial artery. The catheter was threaded over the guide wire and the needle was removed with appropriate pulsatile blood return. The catheter was then sutured in place to the skin and a sterile dressing applied. Perfusion to the extremity distal to the point of catheter insertion was checked and found to be adequate. Estimated Blood Loss: 1ml The patient tolerated the procedure well and there were no complications. Bryn Camacho MD Mar 23, 2017 00:51
[2017-03-23] MEDS: DEXT 5%-NACL 0.9% 1000 ML INJ 1,000 ML IV SCH (02:27)
[2017-03-23] MEDS: PIPERACIL-TAZO 3.375 GM PREMIX 50 ML IV SCH ×2 (02:27→08:56)
[2017-03-23] MEDS: RESP: ALBUTEROL 2.5 MG/IPRATROPIUM 0.5 MG NEB (SCH) NEB ×2 (03:27→08:33)
[2017-03-23] MEDS ORDERED: CHLORHEXIDINE GLUCONATE 2 % 1 PACK (2 CLOTHS)(taper/protocol) TOPICAL SCH (04:00)
[2017-03-23 05:57] LABS: HEMATOCRIT 24.2 % (35.0-46.0); MEAN CELL VOLUME 93.9 FL (80.0-100.0); MEAN CORPUSCULAR HEMOGLOBIN 32.6 PG (27.0-34.0); MEAN CORPUSCULAR HGB CONC 34.7 % (32.0-36.0); PLATELET COUNT 73 TH/MM3 (150-450); RED BLOOD COUNT 2.58 MIL/MM3 (4.00-5.30); RED CELL DISTRIBUTION WIDTH 24.9 % (11.6-17.2); WHITE BLOOD COUNT 0.6 TH/MM3 (4.0-11.0)
[2017-03-23] MEDS ORDERED: HYDROCORTISONE SOD SUCCINATE 100 MG VIAL ONE (06:02)
[2017-03-23 06:10] LABS: ANION GAP 22 MEQ/L (5-15); HEMO FLAGS AUTO DIFF
[2017-03-23 06:11] LABS: ALKALINE PHOSPHATASE 227 U/L (45-117); ALT (GPT) 59 U/L (10-53); AST (GOT) 434 U/L (15-37); BICARBONATE 12.9 MEQ/L (21.0-32.0); BLOOD UREA NITROGEN 32 MG/DL (7-18); CHLORIDE 102 MEQ/L (98-107); GLOMERULAR FILTRATION RATE 25 ML/MIN (>89); POTASSIUM 3.4 MEQ/L (3.5-5.1); SODIUM (NA) 137 MEQ/L (136-145); TOTAL BILIRUBIN ADULT 12.3 MG/DL (0.2-1.0)
[2017-03-23] MEDS ORDERED: HYDROCORTISONE SOD SUCCINATE 100 MG VIAL IV ONE (06:15)
[2017-03-23] MEDS: SODIUM BICARBONATE 8.4% INJ 75 MEQ in SODIUM CHLOR 0.45% 1000 ML INJ 1,000 ML IV SCH (06:21)
[2017-03-23] MEDS: LEVOTHYROXINE SODIUM 200 MCG TAB PO SCH (06:28)
[2017-03-23] MEDS ORDERED: ALBUMIN HUMAN 25% 25 GM/100 ML BAGP IV ONE (06:45)
[2017-03-23] MEDS ORDERED: GLUCAGON 1 MG/ML VIAL IM PRN (06:45)
[2017-03-23] MEDS ORDERED: DEXTROSE 10% INJ 1,000 ML IV SCH (06:45)
[2017-03-23] MEDS ORDERED: DEXTROSE 50% IN WATER 50 ML VIAL(D50) IV PRN (06:45)
[2017-03-23] MEDS ORDERED: DEXTROSE 50% IN WATER 50 ML SYRINGE IV ONE (06:45)
[2017-03-23] MEDS ORDERED: Vancomycin Consult Pharmacy 1 EA OTHER SCH (07:00)
[2017-03-23 07:02] LABS: BLOOD GAS BASE EXCESS -14.3 mmol/L (-2-2); BLOOD GAS CARBOXYHEMOGLOBIN 0.8 % (0-4); BLOOD GAS HCO3 11 mmol/L (22-26); BLOOD GAS METHEMOGLOBIN 1.4 % (0-2); BLOOD GAS O2 HGB SATURATION 98 % (90-100); BLOOD GAS PCO2 24 mmHg (38-42); BLOOD GAS PO2 301 mmHg (61-120); BLOOD GAS TOTAL HGB 7.5 G/DL (12.0-16.0); TEMP CORR TO 98.6
[2017-03-23 07:05] LABS: CRITICAL VALUE YES; DRAW SITE ART LINE; OXYGEN DEVICE VENTILATOR; VENT SETTINGS PRVC/AC
[2017-03-23 07:06] LABS: STAT YES
--- NOTE | 2017-03-23 07:13 | RADRPT ---
EXAM DATE/TIME: 03/23/2017 06:45 [facility] COMPARISON: CHEST SINGLE AP, March 22, 2017, 17:43. INDICATIONS : Evaluate for respiratory distresss MEDICAL HISTORY : Carcinoma, breast. SURGICAL HISTORY : infusaport ENCOUNTER: Subsequent ACUITY: 1 week PAIN SCORE: Non-responsive. LOCATION: Bilateral chest FINDINGS: Single AP view of the chest. Right IJ central venous catheter, endotracheal tube, nasogastric tube, r ight-sided [id number], and left-sided subclavian central venous catheter remain in place. Persiste nt elevation of the right hemidiaphragm. Mild bilateral lower lung zone atelectasis unchanged. No sofie dence of pleural effusion or pneumothorax. CONCLUSION: No significant neural change. Mild patchy lower lung zone opacity again seen. Josh Wong MD on March 23, 2017 at 7:10 Board Certified Radiologist. This report was verified electronically.
[2017-03-23 07:22] LABS: BANDS 8 % (0-6); CORRECTED NUCLEATED RBC 28 /100 WBC (0-0); EOSINOPHILS 8 % (0-4); NEUTROPHIL # MANUAL DIFF 0.1 TH/MM3 (1.8-7.7); POLYS (SEG NEUTROPHILS) 16 % (16-70); WBC DIFF SAMPLE 25
[2017-03-23 07:23] LABS: PLATELET ESTIMATE SMEAR LOW (NORMAL)
[2017-03-23 07:24] LABS: PLATELET MORPHOLOGY NORMAL (NORMAL)
[2017-03-23 07:25] LABS: ACANTHOCYTES OCC (NORMAL); HOWELL-JOLLY BODIES PRESENT (NONE SEEN); KERATOCYTES OCC (NORMAL)
[2017-03-23 07:26] LABS: SPHEROCYTES OCC (NORMAL)
[2017-03-23] MEDS ORDERED: DOBUTamine PREMIX DRIP 250 ML ONE (07:26)
[2017-03-23 07:28] LABS: SCAN/DIFF FINAL DIFF MANUAL; TARGET CELLS 1+ (NORMAL)
[2017-03-23] MEDS ORDERED: DOBUTamine PREMIX DRIP 250 ML IV SCH (07:38)
[2017-03-23] MEDS ORDERED: SODIUM BICARBONATE 8.4% INJ 50 MEQ/50 ML SYR IV PUSH ONE (07:45)
[2017-03-23] MEDS ORDERED: SODIUM CHLOR 0.9% 1000 ML INJ 1,000 ML IV ONE ×2 (07:45)
[2017-03-23] MEDS ORDERED: SODIUM BICARBONATE 8.4% INJ 50 ML ONE (07:50)
[2017-03-23] MEDS ORDERED: MICAFUNGIN INJ 150 MG in SODIUM CHLORIDE 0.9% INJ 100 ML IV SCH (08:00)
--- NOTE | 2017-03-23 08:02 | HHI.CCPN ---
Subjective Remarks/Hospital Course Patient is a 51-year-old female with past medical history significant for previous thyroid cancer status post thyroidectomy, hypothyroidism, metastatic breast cancer to the liver presented to the emergency room yesterday 03/21 with severe lower and mid abdominal pain. Patient was admitted to the hospitalist service with neutropenic sepsis. She was placed on ceftriaxone. Unclear source possible UTI versus SBP. Pt has had 2 paracentesis in 2 weeks. Apparently patient's ca recently progressed on cisplatin, developed progressive liver metastatic disease with hepatic failure. She was started on palliative therapy with [place] by Dr. Pierce. Patient was moved to the [facility] today for persistent hypotension and lethargy. New labs showed lactic acid 8.0, ammonia 43, blood cultures and urine cultures obtained. CT abdomen suspicious for metastatic disease to the liver, also moderate ascites and anasarca. Rocephin was discontinued and Zosyn was started with single dose of vancomycin. Patient had been progressively oliguric and creatinine increased to 2.3 from 1 on admission. I evaluated the patient in the ICU. She appears acutely ill jaundiced, in severe distress. Bedside ultrasound showed moderate ascites. I discussed with patient and she requests full code including intubation. Her ABG shows severe metabolic acidosis partially compensated ABG 7. with BE -18. I will give total 3 L normal saline fluid boluses, 1 amp of bicarbonate and change fluid to bicarbonate infusion. Will wait 24 hours for response if not patient will need hemodialysis or CVVH. Discussed with Dr. Ledesma SUBJ: 03/23: Patient is in profound septic shock. Currently on 30 mcg/m of Levophed, Kevin-Synephrine at 300 mcg/m and vasopressin 0.04 international units. Map varies from 50-52. Initiate flow track monitoring. If cardiac index and central venous saturation low will start dobutamine. Bedside echo shows near normal ejection fraction-I doubt dobutamine will be beneficial. I have explained to the family that she is maxed out on life support and appears terminally ill. Paracentesis with 2.3 L removed yesterday-studies consistent with spontaneous bacterial peritonitis with 1023 WBC Objective Vital Signs Date Time Temp Pulse Resp B/P Pulse Ox O2 Delivery O2 Flow Rate FiO2 03/23/17 06:00 126 03/23/17 04:30 97 50 03/23/17 04:00 98.7 24 107/46 71/37 03/21/17 05:08 Room Air Intake and Output 03/22/17 03/22/17 03/23/17 08:00 16:00 00:00 Intake Total 120 ml 3916 ml 3423 ml Output Total 5 ml 3525 ml Balance 120 ml 3911 ml -102 ml Result Diagram: 03/23/17 0325 03/23/17 0325 Other Results Laboratory Tests Test 03/22/17 03/22/17 03/22/17 03/22/17 14:25 16:12 17:15 20:53 Blood Gas Puncture Site RT BRACHIAL RT BRACHIAL RT BRACHIAL RT RADIAL Blood Gas Patient Temperature 98.6 98.6 98.6 98.6 Blood Gas HCO3 8 mmol/L 8 mmol/L 9 mmol/L 16 mmol/L (22-26) (22-26) (22-26) (22-26) Blood Gas Base Excess -18.4 mmol/L -18.8 mmol/L -18.0 mmol/L -8.9 mmol/L (-2-2) (-2-2) (-2-2) (-2-2) Blood Gas Oxygen Saturation 91 % (90-100) 89 % (90-100) 98 % (90-100) 67 % (90- 100) Arterial Blood pH 7.23 7.19 7.14 7.35 (7.380-7.420) (7.380-7.420) (7.380-7.420) (7.380-7.420) Arterial Blood Partial 20 mmHg (38-42) 22 mmHg (38-42) 28 mmHg (38-42) 29 mmHg ( 38-42) Pressure CO2 Arterial Blood Partial 76 mmHg 74 mmHg 373 mmHg 36 mmHg Pressure O2 (61-120) (61-120) (61-120) (61-120) Arterial Blood Oxygen Content 11.2 Vol % 11.4 Vol % 13.5 Vol % 9.3 Vol % (12.0-20.0) (12.0-20.0) (12.0-20.0) (12.0-20.0) Arterial Blood 1.3 % (0-4) 1.1 % (0-4) 0.7 % (0-4) 1.0 % (0-4) Carboxyhemoglobin Arterial Blood Methemoglobin 1.1 % (0-2) 1.1 % (0-2) 0.9 % (0-2) 1.0 % (0-2) Blood Gas Hemoglobin 8.7 G/DL 9.1 G/DL 9.1 G/DL 9.9 G/DL (12.0-16.0) (12.0-16.0) (12.0-16.0) (12.0-16.0) Blood Gas Inspired Oxygen 21 % 21 % 100 % 60 % Oxygen Delivery Device VENTILATOR VENTILATOR Blood Gas Ventilator Setting [facility]/ Test 03/22/17 03/23/17 21:13 06:51 Blood Gas Puncture Site ART LINE ART LINE Blood Gas Patient Temperature 98.6 98.6 Blood Gas HCO3 15 mmol/L 11 mmol/L (22-26) (22-26) Blood Gas Base Excess -9.2 mmol/L -14.3 mmol/L (-2-2) (-2-2) Blood Gas Oxygen Saturation 97 % (90-100) 98 % (90-100) Arterial Blood pH 7.36 7.28 (7.380-7.420) (7.380-7.420) Arterial Blood Partial 28 mmHg (38-42) 24 mmHg (38-42) Pressure CO2 Arterial Blood Partial 182 mmHg 301 mmHg Pressure O2 (61-120) (61-120) Arterial Blood Oxygen Content 11.8 Vol % 11.0 Vol % (12.0-20.0) (12.0-20.0) Arterial Blood 1.1 % (0-4) 0.8 % (0-4) Carboxyhemoglobin Arterial Blood Methemoglobin 1.2 % (0-2) 1.4 % (0-2) Blood Gas Hemoglobin 8.3 G/DL 7.5 G/DL (12.0-16.0) (12.0-16.0) Oxygen Delivery Device VENTILATOR VENTILATOR Blood Gas Ventilator Setting [facility]/ Objective Remarks Drips: Levophed 30 Kevin-Synephrine 400 Vasopressin 0.04 Fentanyl 50 Versed Off P/E GENERAL: This is a acutely ill-appearing woman. Severely jaundiced intubated SKIN: Warm and dry. Jaundiced. HEAD: Atraumatic. Normocephalic. EYES: Pupils equal and round. Sclera are icteric. ENT: No nasal bleeding or discharge. Mucous membranes dry. Orotracheally intubated NECK: Trachea midline. Neck is supple. Right IJ Vas-Cath. Left subclavian central line CARDIOVASCULAR: Regular rhythm, tachycardic rate. No murmurs. Profound septic shock on 3 pressors map 50. Bedside US EF 45-50% RESPIRATORY: Intubated, mechanically ventilated. Lungs are clear, but diminished. GASTROINTESTINAL: Abdomen is distended diffusely tender. Positive hepatomegaly. No guarding. Paracentesis with 2.3 L removed yesterday MUSCULOSKELETAL: No obvious deformities. No edema. NEUROLOGICAL: Drowsy but arousable. No obvious cranial nerve deficits. Motor grossly within normal limits. Normal speech. Urinary Catheter: Yes Assessment to: Continue Vascular Central Line Catheter: Yes Assessment to: Continue A/P Assessment and Plan NEURO: Metabolic encephalopathy Hyperammonemia -Monitor neuro status closely, fentanyl for sedation and analgesia while on ventilator -Lactulose 30 mL daily, repeat ammonia level RESP: Acute respiratory failure Severe metabolic acidosis -Intubated yesterday for worsening acidemia, inability to compensate -ACV 600/20/5/60%. Ventilator bundle -DuoNeb every 6 hours scheduled and when necessary -Not a candidate for spontaneous breathing trial due to profound septic shock CV: Septic shock Lactic acidosis -Currently on 30 mcg/m of Levophed, Kevin-Synephrine at 300 mcg/m and vasopressin 0.04 international units. -Stress dose hydrocortisone started -Flotrac monitoring shows cardiac index 3.1, SVR 18, SVR 500 indicating septic shock -Additional 2 L bolus of normal saline. -Check serial lactic acid, monitor CVP, check central venous gas -If cardiac index and central venous saturation low will start dobutamine. Bedside echo shows near normal ejection fraction GI: Hepatic failure Liver metastases Spontaneous bacterial peritonitis -Keep nothing by mouth, IV Protonix -Correct coagulopathy -See ID section for treatment of SBP : Acute kidney failure Severe metabolic acidosis -Started on hemodialysis yesterday for refractory metabolic acidosis and acute renal failure -Continue bicarbonate infusion -Nephrology Dr. Ledesma ID: Septic shock Neutropenic sepsis Spontaneous bacterial peritonitis Probable UTI -Paracentesis with 2.3 L removed yesterday, fluid studies consistent with spontaneous bacterial peritonitis with WBC 1023 -IV vancomycin 1 dose and pharmacy to dose. Zosyn renally adjusted to call for Pseudomonas -Follow-up on blood and urine culture, ascites fluid culture HEME: Metastatic breast cancer on palliative chemotherapy Chemotherapy-induced pancytopenia -Monitor CBC, CMP, coags -s/p 1 unit of platelets and FFP 03/22 -Prognosis appears very poor ENDO: -Replace electrolytes per protocol PROPH: -Bilateral lower extremity SCDs. IV Protonix 40 mg daily. Chemical DVT prophylaxis contraindicated due to coagulopathy and thrombocytopenia LINES: Left subclavian central line and right IJ Vas-Cath placed 03/23/17 CC time 82 min. Discussed with entire family. Prognosis very poor, now DNR. I encouraged family to consider comfort measures and withdrawal of life support Manju Lemus MD Mar 23, 2017 08:02
[2017-03-23 08:07] LABS: BLOOD GAS VENOUS BASE EXCESS -14.7 mmol/L (-2-2); BLOOD GAS VENOUS HCO3 11 mmol/L (22-26); BLOOD GAS VENOUS O2 CONTENT 10.4 Vol % (9.0-17.0); BLOOD GAS VENOUS O2 HGB SAT 87 % (70-76); BLOOD GAS VENOUS PCO2 26 mmHg (44-48); BLOOD GAS VENOUS PO2 61 mmHg (35-40); BLOOD GAS VENOUS pH 7.25 (7.360-7.400); TEMP CORR TO 98.6
[2017-03-23 08:08] LABS: CRITICAL VALUE YES; OXYGEN DEVICE VENTILATOR
[2017-03-23 08:09] LABS: DRAW SITE CENTRAL LINE; FIO2 60 %; STAT YES; VENT SETTINGS PRVC/AC
[2017-03-23] MEDS ORDERED: LACTULOSE SYRUP 20 GM/30 ML CUP PO SCH (09:00)
[2017-03-23] MEDS: SODIUM CHLORIDE 0.9% FLUSH 10 ML FLUSH IV FLUSH SCH (09:10)
[2017-03-23] MEDS ORDERED: SODIUM BICARBONATE 8.4% INJ 150 MEQ in DEXTROSE 5% IN WATE 1000ML INJ 1,000 ML IV SCH ×2 (09:15)
[2017-03-23] MEDS: DOCUSATE SODIUM 50 MG/SENNA 8.6 MG TAB PO SCH (09:22)
[2017-03-23] MEDS: POLYETHYLENE GLYCOL 17 GM PKG PO SCH (09:22)
[2017-03-23] MEDS: VASOPRESSIN 40 U/D5W 100 ML Hypotension, do NOT titrate (enter ordered rate) IV SCH ×2 (09:23)
[2017-03-23] MEDS ORDERED: HYDROCORTISONE SOD SUCCINATE 100 MG VIAL IV SCH (10:00)
--- NOTE | 2017-03-23 10:24 | HHI.NPPN ---
Subjective Interval History patient is on 4 different vasopressors. On the ventilator. Unresponsive. Dialyzed yesterday, but she has worsening lactic acidosis due to septic shock. Objective Data Data 03/22/17 03/23/17 19:00 07:00 Intake Total 3916 ml 5211 ml Output Total 5 ml 3530 ml Balance 3911 ml 1681 ml Intake Oral 100 ml IV Total 3816 ml 4302 ml Albumin 350 ml FFP 319 ml Platelets 240 ml Output Urine Total 5 ml 30 ml Drainage Total 2000 ml Hemodialysis 1500 ml Bladder Scan Volume Amount 180 ml # Bowel Movements 0 0 Vital Signs Date Time Temp Pulse Resp B/P Pulse Ox O2 Delivery O2 Flow Rate FiO2 03/23/17 08:34 93 60 03/23/17 06:00 126 03/23/17 04:30 97 50 03/23/17 04:00 125 03/23/17 04:00 55 03/23/17 04:00 98.7 125 24 107/46 96 71/37 03/23/17 02:00 125 03/23/17 01:03 98 50 03/23/17 00:00 98.5 127 27 117/53 100 90/44 03/23/17 00:00 127 03/23/17 00:00 55 03/22/17 22:02 100 60 03/22/17 22:00 125 03/22/17 20:00 60 03/22/17 20:00 127 03/22/17 20:00 98.3 127 28 129/53 100 03/22/17 19:10 100 60 03/22/17 18:08 60 03/22/17 18:00 108 03/22/17 17:36 100 60 03/22/17 17:00 60 03/22/17 16:47 100 100 03/22/17 16:00 110 03/22/17 16:00 97.8 110 46 98/47 95 03/22/17 14:00 109 03/22/17 12:00 97.9 106 18 92/43 96 03/22/17 12:00 106 03/22/17 11:00 112 -: 03/23/17 0325 03/23/17 0800 Microbiology 03/22/17 Aerobic Blood Culture, Received Pending 03/22/17 Anaerobic Blood Culture, Received Pending 03/22/17 Gram Stain - Final, Resulted 6/3/17 Body Fluid Culture, Resulted Pending Physical Exam General Appearance: Malnourished Eyes Eye Exam: Jaundice Throat Throat Remarks orotracheal intubation Pulmonary Resp Remarks vented breath sounds. Cardiology CV Exam: Regular Gastrointestinal/Abdomen GI Remarks distension, tenderness. Neurologic Neuro Exam: Unresponsive Assessment/Plan Problem List: (1) Acute kidney failure Plan: likely has developed ATN due to hypotension, sepsis. Dialysis performed yesterday. She is unstable for any form of renal replacement today. Dialysis will not change her outcome and prognosis which are dismal. I believe that she is terminally ill. I have changed to formulation of IVF to include 150 mEq of NaHCO3. (2) Sepsis Plan: Has SBP. Broad spectrum antibiotics. She is in septic shock in the setting of pancytopenia. (3) Pancytopenia Plan: due to chemotherapy. Hematology following. On Filgrastim. (4) Breast cancer Plan: with liver metastatic disease as well as possible intraperitoneal mets. Poor prognosis. Micah Ledesma MD Mar 23, 2017 10:24
[2017-03-23] MEDS ORDERED: EPINEPHrine (1:1000) INJ 2 MG in DEXTROSE 5% IN WATER INJ 248 ML IV SCH ×2 (10:45)
[2017-03-23] MEDS ORDERED: ARTIFICIAL TEARS OPTH OINT 3.5 APPLIC/3.5 GM TUBO EACH EYE SCH (11:00)
--- NOTE | 2017-03-23 11:03 | PD.ONC.PN ---
Subjective Subjective Remarks Afebrile The patient was intubated yesterday afternoon Per RN, the family wants to withdraw life support later today Objective Data Date Time Temp Pulse Resp B/P Pulse Ox O2 Delivery O2 Flow Rate FiO2 03/23/17 10:00 125 03/23/17 10:00 125 24 115/55 91 88/42 03/23/17 08:34 93 60 03/23/17 08:00 98.2 130 23 87/49 94 65/37 03/23/17 08:00 130 03/23/17 08:00 60 03/23/17 06:00 126 03/23/17 04:30 97 50 03/23/17 04:00 125 03/23/17 04:00 55 03/23/17 04:00 98.7 125 24 107/46 96 71/37 03/23/17 02:00 125 03/23/17 01:03 98 50 03/23/17 00:00 98.5 127 27 117/53 100 90/44 03/23/17 00:00 127 03/23/17 00:00 55 03/22/17 22:02 100 60 03/22/17 22:00 125 03/22/17 20:00 60 03/22/17 20:00 127 03/22/17 20:00 98.3 127 28 129/53 100 03/22/17 19:10 100 60 03/22/17 18:08 60 03/22/17 18:00 108 03/22/17 17:36 100 60 03/22/17 17:00 60 03/22/17 16:47 100 100 03/22/17 16:00 110 03/22/17 16:00 97.8 110 46 98/47 95 03/22/17 14:00 109 03/22/17 12:00 97.9 106 18 92/43 96 03/22/17 12:00 106 03/22/17 11:00 112 Result Diagram: 03/23/17 0325 03/23/17 0800 Laboratory Results Laboratory Tests Test 03/22/17 03/22/17 03/22/17 03/22/17 12:20 14:25 16:05 16:12 Lactic Acid Level 8.0 mmol/L Ammonia 43 MCMOL/L Lactate Dehydrogenase 470 U/L Total Protein 5.0 GM/DL Blood Gas Puncture Site RT BRACHIAL RT BRACHIAL Blood Gas Patient Temperature 98.6 98.6 Blood Gas HCO3 8 mmol/L 8 mmol/L Blood Gas Base Excess -18.4 mmol/L -18.8 mmol/L Blood Gas Oxygen Saturation 91 % 89 % Arterial Blood pH 7.23 7.19 Arterial Blood Partial 20 mmHg 22 mmHg Pressure CO2 Arterial Blood Partial 76 mmHg 74 mmHg Pressure O2 Arterial Blood Oxygen Content 11.2 Vol % 11.4 Vol % Arterial Blood 1.3 % 1.1 % Carboxyhemoglobin Arterial Blood Methemoglobin 1.1 % 1.1 % Blood Gas Hemoglobin 8.7 G/DL 9.1 G/DL Blood Gas Inspired Oxygen 21 % 21 % Peritoneal Fluid WBC 1027 /MM3 Peritoneal Fluid RBC 5934 /MM3 Peritoneal Fluid Neutrophils 48 % Peritoneal Fluid Lymphocytes 39 % Peritoneal Fluid Monocytes 4 % Peritoneal Fluid Mesothelial 2 % Cells Peritoneal Fluid Histiocytes 7 % Peritoneal Fluid Comment Test 03/22/17 03/22/17 03/22/17 03/22/17 16:37 17:15 18:25 20:53 Blood Type A POSITIVE Blood Bank Comment Blood Gas Puncture Site RT BRACHIAL RT RADIAL Blood Gas Patient Temperature 98.6 98.6 Blood Gas HCO3 9 mmol/L 16 mmol/L Blood Gas Base Excess -18.0 mmol/L -8.9 mmol/L Blood Gas Oxygen Saturation 98 % 67 % Arterial Blood pH 7.14 7.35 Arterial Blood Partial 28 mmHg 29 mmHg Pressure CO2 Arterial Blood Partial 373 mmHg 36 mmHg Pressure O2 Arterial Blood Oxygen Content 13.5 Vol % 9.3 Vol % Arterial Blood 0.7 % 1.0 % Carboxyhemoglobin Arterial Blood Methemoglobin 0.9 % 1.0 % Blood Gas Hemoglobin 9.1 G/DL 9.9 G/DL Oxygen Delivery Device VENTILATOR VENTILATOR Blood Gas Ventilator Setting PRVC/AC PRVC/AC Blood Gas Inspired Oxygen 100 % 60 % Lactic Acid Level 7.9 mmol/L Test 03/22/17 03/22/17 03/23/17 03/23/17 21:13 21:50 03:25 06:51 Blood Gas Puncture Site ART LINE ART LINE Blood Gas Patient Temperature 98.6 98.6 Blood Gas HCO3 15 mmol/L 11 mmol/L Blood Gas Base Excess -9.2 mmol/L -14.3 mmol/L Blood Gas Oxygen Saturation 97 % 98 % Arterial Blood pH 7.36 7.28 Arterial Blood Partial 28 mmHg 24 mmHg Pressure CO2 Arterial Blood Partial 182 mmHg 301 mmHg Pressure O2 Arterial Blood Oxygen Content 11.8 Vol % 11.0 Vol % Arterial Blood 1.1 % 0.8 % Carboxyhemoglobin Arterial Blood Methemoglobin 1.2 % 1.4 % Blood Gas Hemoglobin 8.3 G/DL 7.5 G/DL Oxygen Delivery Device VENTILATOR VENTILATOR Blood Gas Ventilator Setting PRVC/AC PRVC/AC White Blood Count 0.5 TH/MM3 0.6 TH/MM3 Red Blood Count 2.64 MIL/MM3 2.58 MIL/MM3 Hemoglobin 8.3 GM/DL 8.4 GM/DL Hematocrit 24.9 % 24.2 % Mean Corpuscular Volume 94.2 FL 93.9 FL Mean Corpuscular Hemoglobin 31.6 PG 32.6 PG Mean Corpuscular Hemoglobin 33.6 % 34.7 % Concent Red Cell Distribution Width 25.2 % 24.9 % Platelet Count 66 TH/MM3 73 TH/MM3 Mean Platelet Volume 8.4 FL 9.1 FL Neutrophils (%) (Auto) % % Lymphocytes (%) (Auto) % % Monocytes (%) (Auto) % % Eosinophils (%) (Auto) % % Basophils (%) (Auto) % % Neutrophils # (Auto) TH/MM3 TH/MM3 Lymphocytes # (Auto) TH/MM3 TH/MM3 Monocytes # (Auto) TH/MM3 TH/MM3 Eosinophils # (Auto) TH/MM3 TH/MM3 Basophils # (Auto) TH/MM3 TH/MM3 CBC Comment AUTO DIFF AUTO DIFF Differential Total Cells 100 25 Counted Neutrophils % (Manual) 30 % 16 % Band Neutrophils % 8 % 8 % Lymphocytes % 45 % 64 % Monocytes % 16 % 4 % Neutrophils # (Manual) 0.2 TH/MM3 0.1 TH/MM3 Nucleated Red Blood Cells 8 /100 WBC 28 /100 WBC Differential Comment FINAL DIFF FINAL DIFF MANUAL MANUAL Plasma Cells 1 % Dohle Bodies PRESENT Platelet Estimate LOW LOW Platelet Morphology Comment NORMAL NORMAL Target Cells 1+ 1+ Ovalocytes 1+ Stomatocytes 1+ [place] Bodies PRESENT PRESENT Acanthocytes OCC OCC Sodium Level 140 MEQ/L 137 MEQ/L Potassium Level 3.2 MEQ/L 3.4 MEQ/L Chloride Level 103 MEQ/L 102 MEQ/L Carbon Dioxide Level 17.9 MEQ/L 12.9 MEQ/L Anion Gap 19 MEQ/L 22 MEQ/L Blood Urea Nitrogen 29 MG/DL 32 MG/DL Creatinine 1.84 MG/DL 2.06 MG/DL Estimat Glomerular Filtration 29 ML/MIN 25 ML/MIN Rate Random Glucose 62 MG/DL 47 MG/DL Lactic Acid Level 9.9 mmol/L Calcium Level 7.9 MG/DL 7.6 MG/DL Total Bilirubin 12.0 MG/DL 12.3 MG/DL Aspartate Amino Transf 339 U/L 434 U/L (AST/SGOT) Alanine Aminotransferase 58 U/L 59 U/L (ALT/SGPT) Alkaline Phosphatase 244 U/L 227 U/L Total Protein 5.3 GM/DL 5.1 GM/DL Albumin 2.4 GM/DL 2.1 GM/DL Eosinophils % 8 % Atypical Lymphocytes % Spherocytes OCC Keratocytes OCC Random Vancomycin Level 12.9 COMMENT Test 03/23/17 03/23/17 07:48 08:00 Blood Gas Puncture Site CENTRAL LINE Blood Gas Patient Temperature 98.6 Venous Blood pH 7.25 Venous Blood Partial Pressure 26 mmHg CO2 Venous Blood Partial Pressure 61 mmHg O2 Venous Blood HCO3 11 mmol/L Venous Blood Oxygen Saturation 87 % Venous Blood Oxygen Content 10.4 Vol % Venous Blood Base Excess -14.7 mmol/L Oxygen Delivery Device VENTILATOR Blood Gas Ventilator Setting PRVC/AC Blood Gas Inspired Oxygen 60 % Random Glucose 94 MG/DL Culture Results Microbiology Date/Time Procedure Status Source Growth 03/21/17 13:50 Urine Culture - Preliminary Resulted Urine Clean Catch NO GROWTH IN 24 HOURS. 03/22/17 09:00 Aerobic Blood Culture Received Blood Peripheral Pending 03/22/17 09:00 Anaerobic Blood Culture Received Blood Peripheral Pending 03/22/17 12:31 Aerobic Blood Culture Received Blood Peripheral Pending 03/22/17 12:31 Anaerobic Blood Culture Received Blood Peripheral Pending 03/22/17 16:05 Gram Stain - Final Resulted Fluid Peritoneal Fluid 03/22/17 16:05 Body Fluid Culture Resulted Fluid Peritoneal Fluid Pending Imaging Studies Last 24 hours Impressions Chest X-Ray 03/23/17 0000 Signed Impressions: Service Date/Time: Thursday, March 23, 2017 06:45 - CONCLUSION: No significant neural change. Mild patchy lower lung zone opacity again seen. Josh Wong MD Administered Medications Medications (Trade) Dose Ordered Sig/Gerson Route PRN Reason Start Time Stop Time Status Last Admin Dose Admin Sodium Chloride (NS Flush) 2 ml BID IV FLUSH 6/2/17 09:00 03/23/17 09:10 Levothyroxine Sodium (Synthroid) 200 mcg DAILY@06 PO 03/21/17 06:00 03/23/17 06:28 Polyethylene Glycol (Miralax) 17 gm DAILY PO 03/22/17 09:00 03/23/17 09:22 Spironolactone (Aldactone) 50 mg DAILY PO 03/21/17 14:30 Hold 03/21/17 14:58 Filgrastim (Neupogen Inj) 300 mcg DAILY@14 SQ 03/21/17 17:15 03/24/17 17:14 03/22/17 14:51 Senna/Docusate Sodium (Marie-Colace) 1 tab BID PO 03/22/17 21:00 03/23/17 09:22 Miscellaneous Information Patient in critical care unit? Ass... [id number] .XX 03/22/17 11:45 03/22/17 11:45 Lactulose 30 ml 30 ml DAILY PO 03/23/17 09:00 03/23/17 09:10 Piperacillin Sod/ Tazobactam Sod 50 ml @ 100 mls/hr Q6H IV 03/22/17 20:00 03/23/17 08:56 Vasopressin 40 units/Dextrose 100 ml @ 6 mls/hr [id number] IV 03/22/17 17:15 03/23/17 09:23 Sodium Chloride (NS 1000 ml Inj) 1,000 ml @ 0 mls/hr TITRATE PRN IV WITH DIALYSIS 03/22/17 18:30 03/22/17 19:04 Mannitol (Mannitol Inj) 12.5 gm UNSCH PRN IV WITH DIALYSIS 03/22/17 18:30 03/22/17 19:03 Albumin Human (Albumin 25% Inj) 25 gm UNSCH PRN IV WITH DIALYSIS 03/22/17 18:30 03/22/17 19:03 Heparin Sodium (Porcine) (Heparin Inj) Dwell Heparin to f... UNSCH PRN OTHER WITH DIALYSIS 03/22/17 18:30 03/22/17 19:05 Gentamicin Sulfate 10 mg 10 mg UNSCH PRN OTHER WITH DIALYSIS 03/22/17 18:30 03/22/17 19:04 Fentanyl Citrate 250 ml @ 0 mls/hr TITRATE IV 03/22/17 19:30 03/22/17 19:53 Midazolam HCl 100 ml @ 0 mls/hr TITRATE IV 03/22/17 19:30 03/22/17 19:53 Norepinephrine Bitartrate 16 mg/ Dextrose 250 ml @ 0 mls/hr TITRATE IV 03/22/17 23:45 03/23/17 06:28 Phenylephrine HCl/ Dextrose (Neosynephrine Inj/D5W 500 ml Inj) 500 ml @ 0 mls/hr TITRATE IV 03/22/17 23:45 03/23/17 07:52 Hydrocortisone Sodium Succinate (SoluCORTEF INJ) 100 mg Q8H IV 03/23/17 10:00 03/23/17 09:11 Dextrose 50 ml 50 ml UNSCH PRN IV HYPOGLYCEMIA-[id number] COMMENTS 03/23/17 06:45 03/23/17 06:45 Dextrose 1,000 ml @ 42 mls/hr [id number] IV 03/23/17 06:45 03/23/17 06:45 Micafungin Sodium 150 mg/Sodium Chloride 100 ml @ 100 mls/hr Q24H IV 03/23/17 08:00 03/23/17 09:23 Epinephrine HCl 2 mg/Dextrose 250 ml @ 22.5 mls/hr TITRATE IV 03/23/17 10:45 03/23/17 09:02 Sodium Bicarbonate/ Dextrose (Sodium Bicarbonate 8.4% Inj/D5W 1000 ml Inj) 1,150 ml @ 125 mls/hr Q9H12M IV 03/23/17 09:15 03/23/17 09:52 Objective Remarks GENERAL: Jaundiced, acutely ill patient lying intubated in bed. Family members at bedside. SKIN: Warm and dry.++ Jaundice HEAD: Normocephalic. EYES: ++scleral icterus NECK: Supple, trachea midline. No JVD or lymphadenopathy. CARDIOVASCULAR: Tachycardic. Multiple vasopressors on board, pt remains hypotensive. RESPIRATORY: Breath sounds equal bilaterally. No accessory muscle use. GASTROINTESTINAL: Abdomen distended. EXTREMITIES: No cyanosis NEUROLOGICAL: Pt sedated and on the vent. Assessment/Plan Problem List: (1) Breast cancer Status: Acute Plan: -- Pt with advanced breast cancer with mets to liver -- Last chemo on 03/18/17 with Halaven -- Pt has recently gone into renal failure -- Prognosis is quite poor Assessment 51 y/o female with history of breast cancer with mets to liver admitted for lower abdominal pain Plan 1. Emotional support provided to family. 2. Pt with poor prognosis. Hospice/withdrawl would be appropriate option. 3. This is a difficult situation and we will continue to be available for emotional support. Tanika Nance Mar 23, 2017 11:03
--- NOTE | 2017-03-23 12:37 | HHI.GIFU ---
Subjective Remarks Patient lethargic, resting in bed. Multiple family members at bedside. ( Janna Miramontes) Objective Vitals I&O Vital Signs Date Time Temp Pulse Resp B/P Pulse Ox O2 Delivery O2 Flow Rate FiO2 03/23/17 10:00 125 03/23/17 10:00 125 24 115/55 91 88/42 03/23/17 08:34 93 60 03/23/17 08:00 98.2 130 23 87/49 94 65/37 03/23/17 08:00 130 03/23/17 08:00 60 03/23/17 06:00 126 03/23/17 04:30 97 50 03/23/17 04:00 125 03/23/17 04:00 55 03/23/17 04:00 98.7 125 24 107/46 96 71/37 03/23/17 02:00 125 03/23/17 01:03 98 50 03/23/17 00:00 98.5 127 27 117/53 100 90/44 03/23/17 00:00 127 03/23/17 00:00 55 03/22/17 22:02 100 60 03/22/17 22:00 125 03/22/17 20:00 60 03/22/17 20:00 127 03/22/17 20:00 98.3 127 28 129/53 100 03/22/17 19:10 100 60 03/22/17 18:08 60 03/22/17 18:00 108 03/22/17 17:36 100 60 03/22/17 17:00 60 03/22/17 16:47 100 100 03/22/17 16:00 110 03/22/17 16:00 97.8 110 46 98/47 95 03/22/17 14:00 109 I/O 03/22/17 03/22/17 03/22/17 03/23/17 03/23/17 03/23/17 07:00 15:00 23:00 07:00 15:00 23:00 Intake Total 120 ml 3916 ml 3423 ml 1788 ml Output Total 5 ml 3525 ml 5 ml Balance 120 ml 3911 ml -102 ml 1783 ml Intake Oral 120 ml 100 ml IV Total 3816 ml 2614 ml 1688 ml Albumin 250 ml 100 ml FFP 319 ml Platelets 240 ml Output Urine Total 5 ml 25 ml 5 ml Drainage Total 2000 ml Hemodialysis 1500 ml Bladder Scan Volume Amount 180 ml # Bowel Movements 0 0 0 Laboratory Laboratory Tests Test 03/22/17 03/22/17 03/22/17 03/22/17 12:20 14:25 16:05 16:12 Lactic Acid Level 8.0 Ammonia 43 Lactate Dehydrogenase 470 Total Protein 5.0 Blood Gas Puncture Site RT BRACHIAL RT BRACHIAL Blood Gas Patient Temperature 98.6 98.6 Blood Gas HCO3 8 8 Blood Gas Base Excess -18.4 -18.8 Blood Gas Oxygen Saturation 91 89 Arterial Blood pH 7.23 7.19 Arterial Blood Partial 20 22 Pressure CO2 Arterial Blood Partial 76 74 Pressure O2 Arterial Blood Oxygen Content 11.2 11.4 Arterial Blood 1.3 1.1 Carboxyhemoglobin Arterial Blood Methemoglobin 1.1 1.1 Blood Gas Hemoglobin 8.7 9.1 Blood Gas Inspired Oxygen 21 21 Peritoneal Fluid WBC 1027 Peritoneal Fluid RBC 5934 Peritoneal Fluid Neutrophils 48 Peritoneal Fluid Lymphocytes 39 Peritoneal Fluid Monocytes 4 Peritoneal Fluid Mesothelial 2 Cells Peritoneal Fluid Histiocytes 7 Peritoneal Fluid Comment Test 03/22/17 03/22/17 03/22/17 03/22/17 16:37 17:15 18:25 20:53 Blood Type A POSITIVE Blood Bank Comment Blood Gas Puncture Site RT BRACHIAL RT RADIAL Blood Gas Patient Temperature 98.6 98.6 Blood Gas HCO3 9 16 Blood Gas Base Excess -18.0 -8.9 Blood Gas Oxygen Saturation 98 67 Arterial Blood pH 7.14 7.35 Arterial Blood Partial 28 29 Pressure CO2 Arterial Blood Partial 373 36 Pressure O2 Arterial Blood Oxygen Content 13.5 9.3 Arterial Blood 0.7 1.0 Carboxyhemoglobin Arterial Blood Methemoglobin 0.9 1.0 Blood Gas Hemoglobin 9.1 9.9 Oxygen Delivery Device VENTILATOR VENTILATOR Blood Gas Ventilator Setting PRVC/AC PRVC/AC Blood Gas Inspired Oxygen 100 60 Lactic Acid Level 7.9 Test 03/22/17 03/22/17 03/23/17 03/23/17 21:13 21:50 03:25 06:51 Blood Gas Puncture Site ART LINE ART LINE Blood Gas Patient Temperature 98.6 98.6 Blood Gas HCO3 15 11 Blood Gas Base Excess -9.2 -14.3 Blood Gas Oxygen Saturation 97 98 Arterial Blood pH 7.36 7.28 Arterial Blood Partial 28 24 Pressure CO2 Arterial Blood Partial 182 301 Pressure O2 Arterial Blood Oxygen Content 11.8 11.0 Arterial Blood 1.1 0.8 Carboxyhemoglobin Arterial Blood Methemoglobin 1.2 1.4 Blood Gas Hemoglobin 8.3 7.5 Oxygen Delivery Device VENTILATOR VENTILATOR Blood Gas Ventilator Setting PRVC/AC PRVC/AC White Blood Count 0.5 0.6 Red Blood Count 2.64 2.58 Hemoglobin 8.3 8.4 Hematocrit 24.9 24.2 Mean Corpuscular Volume 94.2 93.9 Mean Corpuscular Hemoglobin 31.6 32.6 Mean Corpuscular Hemoglobin 33.6 34.7 Concent Red Cell Distribution Width 25.2 24.9 Platelet Count 66 73 Mean Platelet Volume 8.4 9.1 Neutrophils (%) (Auto) Lymphocytes (%) (Auto) Monocytes (%) (Auto) Eosinophils (%) (Auto) Basophils (%) (Auto) Neutrophils # (Auto) Lymphocytes # (Auto) Monocytes # (Auto) Eosinophils # (Auto) Basophils # (Auto) CBC Comment AUTO DIFF AUTO DIFF Differential Total Cells 100 25 Counted Neutrophils % (Manual) 30 16 Band Neutrophils % 8 8 Lymphocytes % 45 64 Monocytes % 16 4 Neutrophils # (Manual) 0.2 0.1 Nucleated Red Blood Cells 8 28 Differential Comment FINAL DIFF FINAL DIFF MANUAL MANUAL Plasma Cells 1 Dohle Bodies PRESENT Platelet Estimate LOW LOW Platelet Morphology Comment NORMAL NORMAL Target Cells 1+ 1+ Ovalocytes 1+ Stomatocytes 1+ [place] Bodies PRESENT PRESENT Acanthocytes OCC OCC Sodium Level 140 137 Potassium Level 3.2 3.4 Chloride Level 103 102 Carbon Dioxide Level 17.9 12.9 Anion Gap 19 22 Blood Urea Nitrogen 29 32 Creatinine 1.84 2.06 Estimat Glomerular Filtration 29 25 Rate Random Glucose 62 47 Lactic Acid Level 9.9 Calcium Level 7.9 7.6 Total Bilirubin 12.0 12.3 Aspartate Amino Transf 339 434 (AST/SGOT) Alanine Aminotransferase 58 59 (ALT/SGPT) Alkaline Phosphatase 244 227 Total Protein 5.3 5.1 Albumin 2.4 2.1 Eosinophils % 8 Atypical Lymphocytes Spherocytes OCC Keratocytes OCC Random Vancomycin Level 12.9 Test 03/23/17 03/23/17 03/23/17 07:48 08:00 10:25 Blood Gas Puncture Site CENTRAL LINE Blood Gas Patient Temperature 98.6 Venous Blood pH 7.25 Venous Blood Partial Pressure 26 CO2 Venous Blood Partial Pressure 61 O2 Venous Blood HCO3 11 Venous Blood Oxygen Saturation 87 Venous Blood Oxygen Content 10.4 Venous Blood Base Excess -14.7 Oxygen Delivery Device VENTILATOR Blood Gas Ventilator Setting PRVC/AC Blood Gas Inspired Oxygen 60 Random Glucose 94 Ammonia 53 Date/Time Procedure Status Source Growth 03/22/17 16:05 Gram Stain - Final Resulted Fluid Peritoneal Fluid 03/22/17 16:05 Body Fluid Culture Resulted Fluid Peritoneal Fluid Pending 03/22/17 12:31 Aerobic Blood Culture - Preliminary Resulted Blood Peripheral NO GROWTH IN 1 DAY 03/22/17 12:31 Anaerobic Blood Culture - Preliminary Resulted Blood Peripheral NO GROWTH IN 1 DAY 03/21/17 13:50 Urine Culture - Preliminary Resulted Urine Clean Catch NO GROWTH IN 24 HOURS. Imaging Last Impressions Chest X-Ray 03/23/17 0000 Signed Impressions: Service Date/Time: Thursday, March 23, 2017 06:45 - CONCLUSION: No significant neural change. Mild patchy lower lung zone opacity again seen. Josh Wong MD Abdomen/Pelvis CT 03/22/17 0000 Signed Impressions: Service Date/Time: Wednesday, March 22, 2017 11:35 - CONCLUSION: 1. Numerous hypodense lesions in the liver suspicious for metastatic disease. 2. Moderate ascites and anasarca. 3. Fracture of the L1 vertebral body likely subacute to chronic. 4. Multiple nonspecific approximately 1 cm retroperitoneal lymph nodes. Josh Wong MD Liver Ultrasound 03/21/17 0000 Signed Impressions: Service Date/Time: Tuesday, March 21, 2017 17:52 - CONCLUSION: 1. Cirrhosis. 2. Small volume ascites. Jean-Paul Cross Jr., MD Physical Exam HEENT: Normocephalic; atraumatic; sclera icteric. Intubated NECK: Neck is supple, no JVD, no lymphadenopathy. Right IJ Vas-Cath, Left subclavian central line CHEST: Chest is clear to auscultation and percussion. CARDIAC: Tachycardic. ABDOMEN: Firm, distended, tender; hepatomegaly. EXTREMITIES: No clubbing, cyanosis, or edema. SKIN: Warm, dry; Jaundiced ELEVATOR ADJUSTER: Lethargic, intubated (Janna Miramontes) Assessment and Plan Plan ASSESSMENT Elevated LFTs, jaundice, ascites, LFTs continue to worsen, AST 434, ALT 59. Hepatitis pending. Patient has hx BrCa with liver mets. Paracentesis with 2.3 L removed yesterday, 1023 WBC, consistent with spontaneous bacterial peritonitis. Liver Ultrasound 03/21/17--1. Cirrhosis. 2. Small volume ascites Abdomen/Pelvis CT 03/22/17--1. Numerous hypodense lesions in the liver suspicious for metastatic disease. 2. Moderate ascites and anasarca. 3. Fracture of the L1 vertebral body likely subacute to chronic. 4. Multiple nonspecific approximately 1 cm retroperitoneal lymph nodes Thrombocytopenia/coagulopathy, Oncology following Liver mets, Oncology consulted. Acute kidney failure, Nephrology following. Septic shock, lactic acidosis. Lactic acid 9.9 (/). Acute respiratory failure, severe metabolic acidosis, intubated yesterday. Metabolic encephalopathy, ammonia level elevated. Ammonia 43 (6), 53 (/) Started on lactulose. PLAN -Patient now DNR -Hospice/palliative consult -Monitor labs -Supportive care -Further recommendations to follow based on results of above. Patient seen and examined by Dr. Dover and myself and this note is written on his behalf. (Janna Miramontes) Physician Comments Seen and examined, plan as above. Will sign off for now, please notify us if needed. (Kaley Dover MD) Janna Miramontes Mar 23, 2017 12:36 Kaley Dover MD Mar 23, 2017 13:01
[2017-03-23] MEDS ORDERED: MORPHINE SULFATE 8 MG/ML INJ IV PUSH ONE (13:00)
[2017-03-23] MEDS ORDERED: HYOSCYAMINE 0.5 MG/ML AMP IV ONE (13:00)
[2017-03-23] MEDS ORDERED: LORazepam 2 MG/ML VIAL IV ONE ×2 (13:00→13:30)
[2017-03-23] MEDS ORDERED: MORPHINE SULFATE 4 MG/ML INJ IV ONE (13:30)
[2017-03-23] MEDS ORDERED: MORPHINE SULFATE 8 MG/ML INJ IV PUSH PRN (13:30)
[2017-03-23] MEDS ORDERED: HYOSCYAMINE 0.5 MG/ML AMP IV PRN (13:30)
[2017-03-23] MEDS ORDERED: LORazepam 2 MG/ML VIAL IV PRN ×2 (13:30)
[2017-03-23] MEDS ORDERED: MORPHINE SULFATE 4 MG/ML INJ IV PRN (13:30)
--- NOTE | 2017-03-23 15:20 | DEATH SUM ---
Summary Demographics Date Pronounced : Mar 23, 2017 Time Of : 14:40 Preliminary Cause of : Cardiac arrest Manju Lemus MD Mar 23, 2017 15:20
--- NOTE | 2017-03-23 15:31 | HHI.DS ---
Summary Note Date of : Mar 23, 2017 Time Of : 14:40 Admission Date Mar 21, 2017 at 04:47 Admitting Diagnosis dehydration, pancytopenia, ascites, abd pain Diagnosis at Time of : (1) Septic shock ICD Code: A41.9 Diagnosis: Principal (2) Acute respiratory failure ICD Code: J96.00 Diagnosis: Principal (3) Liver failure ICD Code: K72.90 Diagnosis: Principal (4) SBP (spontaneous bacterial peritonitis) ICD Code: K65.2 Diagnosis: Principal (5) Metabolic acidemia ICD Code: E87.2 Diagnosis: Principal (6) Neutropenic sepsis ICD Code: A41.9 Diagnosis: Principal (7) Lactic acidemia ICD Code: E87.2 Diagnosis: Principal (8) Acute kidney failure ICD Code: N17.9 Diagnosis: Principal (9) UTI (urinary tract infection) ICD Code: N39.0 Diagnosis: Principal (10) Pancytopenia ICD Code: D61.818 Diagnosis: Secondary (11) Ascites ICD Code: R18.8 Diagnosis: Secondary (12) Abdominal pain ICD Code: R10.9 Diagnosis: Secondary (13) Breast cancer ICD Code: C50.919 Diagnosis: Secondary Procedures Endotracheal intubation 03/22/17 Paracentesis 03/22/17 Central line placement 03/22/17 Hemodialysis catheter placement 03/22/17 Brief History 51-year-old female with past medical history significant for previous thyroid cancer status post thyroidectomy, hypothyroidism, metastatic breast cancer to the liver presented to the emergency room 03/21 with severe lower and mid abdominal pain. Patient was admitted to the hospitalist service with neutropenic sepsis. She was placed on ceftriaxone. Unclear source possible UTI versus SBP. Pt has had 2 paracentesis in 2 weeks. Apparently patient's cancer recently progressed on cisplatin, developed progressive liver metastatic disease with hepatic failure. She was started on palliative therapy with [place] by Dr. Pierce. Patient was moved to the [facility] 03/22 for persistent hypotension and lethargy. New labs showed lactic acid 8.0, ammonia 43, blood cultures and urine cultures obtained. CT abdomen -metastatic disease to the liver, also moderate ascites and anasarca. Rocephin was discontinued and Zosyn was started with single dose of vancomycin. Patient had been progressively oliguric and creatinine increased to 2.3 from 1 on admission. I evaluated the patient in the ICU. She appears acutely ill jaundiced, in severe distress. Bedside ultrasound showed moderate ascites. Patient requested full code including intubation. Her ABG shows severe metabolic acidosis partially compensated ABG 7. with BE -18. I CBC/BMP: 03/23/17 0325 03/23/17 0800 Significant Findings Laboratory Tests Test 03/21/17 03/21/17 03/22/17 03/22/17 02:42 13:50 05:09 12:20 White Blood Count 0.6 TH/MM3 0.6 TH/MM3 (4.0-11.0) (4.0-11.0) Red Blood Count 3.46 MIL/MM3 3.14 MIL/MM3 (4.00-5.30) (4.00-5.30) Hemoglobin 10.7 GM/DL 9.8 GM/DL (11.6-15.3) (11.6-15.3) Hematocrit 32.2 % 29.8 % (35.0-46.0) (35.0-46.0) Red Cell Distribution Width 24.5 % 25.4 % (11.6-17.2) (11.6-17.2) Platelet Count 83 TH/MM3 61 TH/MM3 (150-450) (150-450) Band Neutrophils % 12 % (0-6) 11 % (0-6) Monocytes % 16 % (0-8) Basophils % 8 % (0-2) Neutrophils # (Manual) 0.2 TH/MM3 0.3 TH/MM3 (1.8-7.7) (1.8-7.7) Promyelocytes 4 % (0-0) Nucleated Red Blood Cells 16 /100 WBC 4 /100 WBC (0-0) (0-0) Platelet Estimate LOW (NORMAL) LOW (NORMAL) Prothrombin Time 17.6 SEC 24.0 SEC (9.8-11.6) (9.8-11.6) Activated Partial 49.1 SEC 53.7 SEC Thromboplast Time (24.3-30.1) (24.3-30.1) Sodium Level 131 MEQ/L 131 MEQ/L (136-145) (136-145) Carbon Dioxide Level 16.3 MEQ/L 12.9 MEQ/L (21.0-32.0) (21.0-32.0) Blood Urea Nitrogen 42 MG/DL (7-18) 48 MG/DL (7-18) Estimat Glomerular Filtration 58 ML/MIN (>89) 22 ML/MIN (>89) Rate Random Glucose 113 MG/DL (74-106) Calcium Level 7.6 MG/DL 7.1 MG/DL (8.5-10.1) (8.5-10.1) Total Bilirubin 12.1 MG/DL 13.0 MG/DL (0.2-1.0) (0.2-1.0) Aspartate Amino Transf 288 U/L (15-37) 301 U/L (15-37) (AST/SGOT) Alanine Aminotransferase 59 U/L (10-53) 61 U/L (10-53) (ALT/SGPT) Alkaline Phosphatase 449 U/L 358 U/L (45-117) (45-117) Total Protein 6.2 GM/DL 5.3 GM/DL 5.0 GM/DL (6.4-8.2) (6.4-8.2) (6.4-8.2) Albumin 1.9 GM/DL 1.6 GM/DL (3.4-5.0) (3.4-5.0) Urine Color DARK-BROWN (YELLW/STRAW) Urine Turbidity HAZY (CLEAR) Urine Protein 30 mg/dL (NEG-TRACE) Urine Occult Blood SMALL (NEG) Urine Bilirubin LARGE (NEG) Urine RBC 5 /hpf (0-3) Urine Bacteria MOD /hpf (NONE) Urine Mucus FEW /lpf (OCC) Myelocytes 1 % (0-0) Plasma Cells 1 % (0-0) Dohle Bodies PRESENT (NONE SEEN) Spherocytes OCC (NORMAL) Target Cells 1+ (NORMAL) Ovalocytes 1+ (NORMAL) Acanthocytes OCC (NORMAL) Keratocytes OCC (NORMAL) Anion Gap 16 MEQ/L (5-15) Creatinine 2.28 MG/DL (0.50-1.00) Protein Corrected Calcium 8.1 MG/DL (8.5-10.1) Lactic Acid Level 8.0 mmol/L (0.4-2.0) Ammonia 43 MCMOL/L (11-32) Lactate Dehydrogenase 470 U/L (84-246) Test 03/22/17 03/22/17 03/22/1717 14:25 16:05 16:12 17:15 Blood Gas HCO3 8 mmol/L 8 mmol/L 9 mmol/L (22-26) (22-26) (22-26) Blood Gas Base Excess -18.4 mmol/L -18.8 mmol/L -18.0 mmol/L (-2-2) (-2-2) (-2-2) Arterial Blood pH 7.23 7.19 7.14 (7.380-7.420) (7.380-7.420) (7.380-7.420) Arterial Blood Partial 20 mmHg (38-42) 22 mmHg (38-42) 28 mmHg (38-42) Pressure CO2 Arterial Blood Oxygen Content 11.2 Vol % 11.4 Vol % (12.0-20.0) (12.0-20.0) Blood Gas Hemoglobin 8.7 G/DL 9.1 G/DL 9.1 G/DL (12.0-16.0) (12.0-16.0) (12.0-16.0) Peritoneal Fluid WBC 1027 /MM3 (0-10) Peritoneal Fluid RBC 5934 /MM3 (0-0) Blood Gas Oxygen Saturation 89 % (90-100) Arterial Blood Partial 373 mmHg Pressure O2 (61-120) Test 03/22/17 03/22/17 03/22/17 03/22/17 18:25 20:53 21:13 21:50 Lactic Acid Level 7.9 mmol/L 9.9 mmol/L (0.4-2.0) (0.4-2.0) Blood Gas HCO3 16 mmol/L 15 mmol/L (22-26) (22-) Blood Gas Base Excess -8.9 mmol/L -9.2 mmol/L (-2-2) (-2-2) Blood Gas Oxygen Saturation 67 % (90-100) Arterial Blood pH 7.35 7.36 (7.380-7.420) (7.380-7.420) Arterial Blood Partial 29 mmHg (38-42) 28 mmHg (38-42) Pressure CO2 Arterial Blood Partial 36 mmHg 182 mmHg Pressure O2 (61-120) (61-120) Arterial Blood Oxygen Content 9.3 Vol % 11.8 Vol % (12.0-20.0) (12.0-20.0) Blood Gas Hemoglobin 9.9 G/DL 8.3 G/DL (12.0-16.0) (12.0-16.0) White Blood Count 0.5 TH/MM3 (4.0-11.0) Red Blood Count 2.64 MIL/MM3 (4.00-5.30) Hemoglobin 8.3 GM/DL (11.6-15.3) Hematocrit 24.9 % (35.0-46.0) Red Cell Distribution Width 25.2 % (11.6-17.2) Platelet Count 66 TH/MM3 (150-450) Band Neutrophils % 8 % (0-6) Lymphocytes % 45 % (9-44) Monocytes % 16 % (0-8) Neutrophils # (Manual) 0.2 TH/MM3 (1.8-7.7) Nucleated Red Blood Cells 8 /100 WBC (0-0) Plasma Cells 1 % (0-0) Dohle Bodies PRESENT (NONE SEEN) Platelet Estimate LOW (NORMAL) Target Cells 1+ (NORMAL) Ovalocytes 1+ (NORMAL) Stomatocytes 1+ (NORMAL) Acanthocytes OCC (NORMAL) Potassium Level 3.2 MEQ/L (3.5-5.1) Carbon Dioxide Level 17.9 MEQ/L (21.0-32.0) Anion Gap 19 MEQ/L (5-15) Blood Urea Nitrogen 29 MG/DL (7-18) Creatinine 1.84 MG/DL (0.50-1.00) Estimat Glomerular Filtration 29 ML/MIN (>89) Rate Random Glucose 62 MG/DL (74-106) Calcium Level 7.9 MG/DL (8.5-10.1) Total Bilirubin 12.0 MG/DL (0.2-1.0) Aspartate Amino Transf 339 U/L (15-37) (AST/SGOT) Alanine Aminotransferase 58 U/L (10-53) (ALT/SGPT) Alkaline Phosphatase 244 U/L (45-117) Total Protein 5.3 GM/DL (6.4-8.2) Albumin 2.4 GM/DL (3.4-5.0) Test 03/23/17 03/23/17 03/23/17 03/23/17 03:25 06:51 07:48 10:25 White Blood Count 0.6 TH/MM3 (4.0-11.0) Red Blood Count 2.58 MIL/MM3 (4.00-5.30) Hemoglobin 8.4 GM/DL (11.6-15.3) Hematocrit 24.2 % (35.0-46.0) Red Cell Distribution Width 24.9 % (11.6-17.2) Platelet Count 73 TH/MM3 (150-450) Band Neutrophils % 8 % (0-6) Lymphocytes % 64 % (9-44) Eosinophils % 8 % (0-4) Neutrophils # (Manual) 0.1 TH/MM3 (1.8-7.7) Nucleated Red Blood Cells 28 /100 WBC (0-0) Platelet Estimate LOW (NORMAL) Spherocytes OCC (NORMAL) Target Cells 1+ (NORMAL) Acanthocytes OCC (NORMAL) Keratocytes OCC (NORMAL) Potassium Level 3.4 MEQ/L (3.5-5.1) Carbon Dioxide Level 12.9 MEQ/L (21.0-32.0) Anion Gap 22 MEQ/L (5-15) Blood Urea Nitrogen 32 MG/DL (7-18) Creatinine 2.06 MG/DL (0.50-1.00) Estimat Glomerular Filtration 25 ML/MIN (>89) Rate Random Glucose 47 MG/DL (74-106) Calcium Level 7.6 MG/DL (8.5-10.1) Total Bilirubin 12.3 MG/DL (0.2-1.0) Aspartate Amino Transf 434 U/L (15-37) (AST/SGOT) Alanine Aminotransferase 59 U/L (10-53) (ALT/SGPT) Alkaline Phosphatase 227 U/L (45-117) Total Protein 5.1 GM/DL (6.4-8.2) Albumin 2.1 GM/DL (3.4-5.0) Blood Gas HCO3 11 mmol/L (22-26) Blood Gas Base Excess -14.3 mmol/L (-2-2) Arterial Blood pH 7.28 (7.380-7.420) Arterial Blood Partial 24 mmHg (38-42) Pressure CO2 Arterial Blood Partial 301 mmHg Pressure O2 (61-120) Arterial Blood Oxygen Content 11.0 Vol % (12.0-20.0) Blood Gas Hemoglobin 7.5 G/DL (12.0-16.0) Venous Blood pH 7.25 (7.360-7.400) Venous Blood Partial Pressure 26 mmHg (44-48) CO2 Venous Blood Partial Pressure 61 mmHg (35-40) O2 Venous Blood HCO3 11 mmol/L (22-26) Venous Blood Oxygen Saturation 87 % (70-76) Venous Blood Base Excess -14.7 mmol/L (-2-2) Ammonia 53 MCMOL/L (11-32) Imaging CT abdomen pelvis showed extensive liver metastases, moderate ascites Hospital Course 51-year-old female with past medical history significant for previous thyroid cancer status post thyroidectomy, hypothyroidism, metastatic breast cancer to the liver presented to the emergency room 03/21 with severe lower and mid abdominal pain. Patient was admitted to the hospitalist service with neutropenic sepsis. She was placed on ceftriaxone. Unclear source possible UTI versus SBP. Pt has had 2 paracentesis in 2 weeks. Apparently patient's cancer recently progressed on cisplatin, developed progressive liver metastatic disease with hepatic failure. She was started on palliative therapy with [place] by Dr. Pierce. Patient was moved to the [facility] 03/22 for persistent hypotension and lethargy. New labs showed lactic acid 8.0, ammonia 43, blood cultures and urine cultures obtained. CT abdomen -metastatic disease to the liver, also moderate ascites and anasarca. Rocephin was discontinued and Zosyn was started with single dose of vancomycin. Patient had been progressively oliguric and creatinine increased to 2.3 from 1 on admission. I evaluated the patient in the ICU. She appears acutely ill jaundiced, in severe distress. Bedside ultrasound showed moderate ascites. I discussed with patient and she requests full code including intubation. Her ABG shows severe metabolic acidosis partially compensated ABG 7. with BE -18. I will give total 3 L normal saline fluid boluses, 1 amp of bicarbonate and change fluid to bicarbonate infusion. Will wait 24 hours for response if not patient will need hemodialysis or CVVH. Discussed with Dr. Ledesma Today, 03/23: Patient is in profound septic shock. On 30 mcg/m of Levophed, Kevin- Synephrine at 300 mcg/m and vasopressin 0.04 international units. Map varies from 50-52. Initiated flow track monitoring. Findings were consistent with distributive septic shock. So dobutamine was not added and central venous saturation was 86%. Bedside echo shows near normal ejection fraction. Epinephrine was added in an attempt to maintain its map above 60% but was unsuccessful. I explained to the family that she is maximized on life support and appears terminally ill. Paracentesis with 2.3 L removed 03/22-studies consistent with spontaneous bacterial peritonitis with 1023 WBC, and this is probably the source of her severe septic shock which is refractory. Family members visited the patient and decided to withdraw life support. Patient was premedicated with IV benzodiazepines and opiates and active life support was withdrawn. Patient comfortably at 1440 on 03/23/17 Manju Lemus MD Mar 23, 2017 15:31
[2017-03-23] MEDS ORDERED: LORazepam 2 MG/ML VIAL IV SCH (16:00)
[2017-03-23] MEDS ORDERED: MORPHINE SULFATE 4 MG/ML INJ IV SCH (16:00)
[2017-03-23] MEDS ORDERED: VANCOMYCIN INJ 1,250 MG in SODIUM CHLOR 0.9% 250 ML INJ 250 ML IV ONE (16:00)
--- NOTE | 2017-03-23 16:18 | EC ---
Study Study Date:03/23/2017 STUDY CONCLUSIONS SUMMARY - Left ventricle: The cavity size was normal. Wall thickness was normal. Systolic function was normal. The estimated ejection fraction was in the range of 60% to 65%. Wall motion was normal; there were no regional wall motion abnormalities. The study is not technically sufficient to allow evaluation of LV diastolic function. - Left atrium: The atrium was mildly dilated. - Right ventricle: The cavity size was mildly dilated. Wall thickness was normal. - Pulmonary arteries: PA peak pressure: 41mm Hg (S). If LV function is below 40, please consider prescribing an ACEI or ARB or document rationale for non-use. PROCEDURE DATA STUDY STATUS: Elective. Procedure: Transthoracic echocardiography. Image quality was good. Scanning was performed from the parasternal, apical, and subcostal acoustic windows. Study completion: The patient tolerated the procedure well. Transthoracic echocardiography. M-mode, complete 2D, complete spectral Doppler, and color Doppler. Patient status: Inpatient. CARDIAC ANATOMY LEFT VENTRICLE: The cavity size was normal. Wall thickness was normal. Systolic function was normal. The estimated ejection fraction was in the range of 60% to 65%. Wall motion was normal; there were no regional wall motion abnormalities. The study is not technically sufficient to allow evaluation of LV diastolic function. AORTIC VALVE: Trileaflet; normal thickness leaflets. Doppler: Transvalvular velocity was within the normal range. There was no stenosis. No regurgitation. AORTA: Aortic root: The aortic root was normal in size. MITRAL VALVE: Structurally normal valve. Doppler: Transvalvular velocity was within the normal range. There was no evidence for stenosis. Trace to mild regurgitation. LEFT ATRIUM: The atrium was mildly dilated. RIGHT VENTRICLE: The cavity size was mildly dilated. Wall thickness was normal. PULMONIC VALVE: Doppler: Transvalvular velocity was within the normal range. There was no evidence for stenosis. No regurgitation. TRICUSPID VALVE: Structurally normal valve. Doppler: Transvalvular velocity was within the normal range. Trace to mild regurgitation. PULMONARY ARTERY: The main pulmonary artery was normal-sized. Systolic pressure was within the normal range. RIGHT ATRIUM: The atrium was normal in size. PERICARDIUM: There was no pericardial effusion. SYSTEMIC VEINS: Inferior vena cava: The vessel was normal in size. BASIC MEASUREMENTS ADULT NORMAL Left ventricle LV internal dimension, ED, chordal level, 50.2 mm 43-52 PLAX LV internal dimension, ES, chordal level, 35.7 mm 23-38 PLAX Fractional shortening, chordal level, PLAX *29 % >29 LV posterior wall thickness, ED 7.88 mm IVS/LVPW ratio, ED 1.05 <1.3 Ventricular septum Septal thickness, ED 8.24 mm Aortic valve Leaflet separation 18 mm 15-26 Right ventricle RV internal dimension, ED, PLAX 30.8 mm 19-38 BASIC MEASUREMENTS ADULT NORMAL Aortic valve Leaflet separation 18 mm 15-26 Aorta Root diameter, ED 30 mm 20-37 Left atrium Anterior-posterior dimension, ES *43 mm 19-40 LA/aortic root ratio 1.43 DOPPLER MEASUREMENTS ADULT NORMAL Main pulmonary artery Pressure, S *41 mm Hg =30 Tricuspid valve Regurgitant peak velocity 266 cm/s Peak RV-RA gradient, S 28 mm Hg Maximal regurgitant velocity 266 cm/s Systemic veins Estimated CVP 10 mm Hg Right ventricle RV pressure, S *41 mm Hg <30 LEGEND: Mean values are shown as u=mean value. Asterisk (*) covington values outside specified normal range. Prepared and signed by Jasen Burks [id number]
[2017-03-25 04:50] LABS: BODY FLUID LDH 395 U/L (()); BODY FLUID LDH SOURCE PERITONEAL (())
== END 2017-03-23 14:40 | disposition expired | DRG 871 ==
LOC: NEPE 01:23 → NEDA 04:47 → HCIN 05:34 → HOCA 15:00 → HIMW 03-22 09:50
PROVIDERS: ADMIT Internal Medicine; ATTEND Internal Medicine
PROC: 0W9G30Z Drainage of Peritoneal Cavity with Drainage Device, Percutaneous Approach (ICD-10-PCS; principal; 2017-03-22)
PROC: 5A1945Z Respiratory Ventilation, 24-96 Consecutive Hours (ICD-10-PCS; 2017-03-22)
PROC: 0BH17EZ Insertion of Endotracheal Airway into Trachea, Via Natural or Artificial Opening (ICD-10-PCS; 2017-03-22)
PROC: 05H633Z Insertion of Infusion Device into Left Subclavian Vein, Percutaneous Approach (ICD-10-PCS; 2017-03-22)
PROC: 05HM33Z Insertion of Infusion Device into Right Internal Jugular Vein, Percutaneous Approach (ICD-10-PCS; 2017-03-22)
PROC: B543ZZA Ultrasonography of Right Jugular Veins, Guidance (ICD-10-PCS; 2017-03-22)
PROC: 03HB33Z Insertion of Infusion Device into Right Radial Artery, Percutaneous Approach (ICD-10-PCS; 2017-03-23)
DX: A41.9 Sepsis, unspecified organism (principal); J96.00 Acute respiratory failure, unspecified whether with hypoxia or hypercapnia; K72.00 Acute and subacute hepatic failure without coma; N17.0 Acute kidney failure with tubular necrosis; R65.21 Severe sepsis with septic shock; G93.41 Metabolic encephalopathy; D61.810 Antineoplastic chemotherapy induced pancytopenia; K65.2 Spontaneous bacterial peritonitis; R18.8 Other ascites; D68.9 Coagulation defect, unspecified; E87.2 Acidosis; C78.7 Secondary malignant neoplasm of liver and intrahepatic bile duct; N39.0 Urinary tract infection, site not specified; S32.019A Unspecified fracture of first lumbar vertebra, initial encounter for closed fracture; D70.3 Neutropenia due to infection; C50.919 Malignant neoplasm of unspecified site of unspecified female breast; E86.0 Dehydration; E89.0 Postprocedural hypothyroidism; I46.9 Cardiac arrest, cause unspecified; K59.00 Constipation, unspecified; T45.1X5A Adverse effect of antineoplastic and immunosuppressive drugs, initial encounter; K74.60 Unspecified cirrhosis of liver; L29.9 Pruritus, unspecified; Z51.5 Encounter for palliative care; Z66 Do not resuscitate; Z85.850 Personal history of malignant neoplasm of thyroid; Z90.13 Acquired absence of bilateral breasts and nipples
CPT/HCPCS: 31500; 36430; 36556; 36600; 49082; 71010; 74176; 76705; 76937; 80053; 80202; 81001; 82042; 82140; 82150; 82805; 82945; 82947; 82948; 83605; 83615; 84155; 84157; 85007; 85027; 85610; 85730; 86705; 86803; 86927; 87040; 87070; 87077; 87086; 87186; 87205; 87340; 87641; 88112; 88305; 89051; 90935; 93005; 93306; 94002; 94003; 94640; 94664; 96361; 96374; 96375; 96376; J0171; J0696; J1250; J1442; J1580; J1644; J1720; J1980; J2060; J2150; J2248; J2250; J2270; J2370; J2405; J2543; J3010; J3370; J3430; J7030; J7042; J7050; J7060; J7070; P9017; P9035; P9045; P9047